=== PATIENT | female | born 1955 | race Caucasian/White ===

== ENCOUNTER 2025-06-27 01:28 | Emergency (ER) | payer MEDICARE, SELFPAY ==
--- OUTSIDE RECORDS SUMMARY | 2025-05-19 13:00 | XMS_ITS | Encounter Summary ---
Author Organization [facility] Address [address], [place] [address] Care Team Providers Care Seafood Preparer Name Role Phone Unavailable Primary Care Provider Unavailabl e Reason for Visit * Procedure/Equipment (Routine) - Incomplete Specialty Diagnoses / Procedures Referred By Contac t Referred To Contact Diagnoses Abnormal finding on breast imaging Procedures MM US Bx Breast Lt Akilah Chamberlain APRN, RELOCATION SERVICES SPECIALIST [address] [place] [address] Phone: tel: fax: Referral ID Status Reason Start Date Expiration Date V isits Requested Visits Authorized [id number] Incomplete 04/13/2025 07/13/2026 1 1 Encounter Details Date Type Department Care Team (Latest Contact Info) Description 05/19/2025 1:00 PM CDT Ancillary Procedure [facility] Mammography at [facility] [place] [address] [place] [address]. 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 [address] [place], [place] [phone] Kunal Arevalo MD [address] [place] [address] documented as of this encounter Procedures Procedure Name Priority Date/Time Associated Diagnosis Comments MM US BX BREAST LT Routine 05/19/2025 1: 19 PM CDT Abnormal finding on breast imaging SURGICAL PATHOLOGY, BREAST Routine 05/19/2025 12:42 PM CDT Abnormal finding on breast imaging documented in this encounter Results * MM US Bx Breast Lt (05/19/2025 1:19 PM CDT) Anatomical Region Laterality Modality Breast Left Ultrasound Impressions 05/20/2025 11:26 AM CDT Left breast ultrasound-guided core biopsy at 11 o'clock position subareolar. 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 RECOMMENDATION: 1. Surgical consultation to discuss the left breast pathology of ADH and possible excision. If excision is not performed, re-evaluation in six months with ultrasound would be recommended. 2. Bilateral follow-up ultrasound in six months is recommended given additional similar findings in either breast. Signed by: Josue Marsh 05/20/2025 11:26 AM FDA Accredited Facility: Amy Gomez [facility] [id number] Narrative 05/20/2025 11:26 AM CDT EXAM: ULTRASOUND GUIDED BREAST BIOPSY HISTORY: Intraductal left breast mass. COMPARISON: 04/13/2025, 10/06/2024, 11/24/2023. FINDINGS: PROCEDURE: The risks and benefits of the procedure were explained to the patient and the patient signed a written consent form. The patient's ID and biopsy site were confirmed. The patient was positioned on the ultrasound table. Sterile technique was utilized. The left breast mass at 11 o'clock position subareolar was localized with ultrasound. A total of 10 ML of 1% lidocaine was used for local anesthesia. Under ultrasound guidance, a 14 gauge Achieve biopsy needle system was used to obtain four core specimens through the target from a lateral approach. A HydroMARK butterfly biopsy marker was placed. There were no immediate complications. The patient was transferred to a mammographic suite. Post Procedure Mammogram for Marker Placement: Post biopsy mammogram shows marker deployment at 11 o'clock position anteriorly. Procedure Note Josue Marsh MD - 05/20/2025 EXAM: ULTRASOUND GUIDED BREAST BIOPSY HISTORY: Intraductal left breast mass. COMPARISON: 04/13/2025, 10/06/2024, 11/24/2023. FINDINGS: PROCEDURE: The risks and benefits of the procedure were explained to thepatient and the patient signed a written consent form. The patient's IDand biopsy site were confirmed. The patient was positioned on theultrasound table. Sterile technique was utilized. The left breast mass at11 o'clock position subareolar was localized with ultrasound. A total of10 ML of 1% lidocaine was used for local anesthesia. Under ultrasoundguidance, a 14 gauge Achieve biopsy needle system was used to obtain fourcore specimens through the target from a lateral approach. A HydroMARKbutterfly biopsy marker was placed. There were no immediatecomplications. The patient was transferred to a mammographic suite. Post Procedure Mammogram for Marker Placement: Post biopsy mammogram shows marker deployment at 11 o'clock positionanteriorly. IMPRESSION Left breast ultrasound-guided core biopsy at 11 o'clock positionsubareolar. 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 RECOMMENDATION: 1. Surgical consultation to discuss the left breast pathology of ADH andpossible excision. If excision is not performed, re-evaluation in sixmonths with ultrasound would be recommended. 2. Bilateral follow-up ultrasound in six months is recommended givenadditional similar findings in either breast. Signed by: Josue Marsh 05/20/2025 11:26 AM FDA Accredited Facility: [facility] [id number] us Akilah Chamberlain APRN, RELOCATION SERVICES SPECIALIST RAD JUNE Fin al Result * Surgical Path, Breast (05/19/2025 12:42 PM CDT) Case Report Surgical Pathology Case: [id number] Authorizing Provider: Akilah Chamberlain APRN, Collected: 05/19/2025 1242 RELOCATION SERVICES SPECIALIST Ordering Location: [facility] Received: 05/19/2025 [address] Center Mammography at [facility] [address] Pathologist: Jessie Mao MD Specimen: Breast, left, 11:00 o'clock, Ultrasound 05/20/2025 10:25 AM CDT [facility] FINAL DIAGNOSIS A. 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 05/20/2025 10:25 AM CDT [facility] at 1025 CDT Clinical Information non-palpable 05/20/2025 10:25 AM CDT [facility] Microscopic Description Microscopic examination is performed. 05/20/2025 10:25 AM CDT [facility] Gross Description A: The specimen is received in formalin and labeled with the patient's name and Breast, left, 11:00 o'clock, Ultrasound. The specimen consists of a 1 x 1 x 0.8 cm aggregate of multiple entangled and fragmented mann-yellow cores of soft tissue. The specimen is inked red. The specimen was collected and placed in formalin at12:41 PM, 05/19/2025. The specimen is entirely submitted in 1 block. AW 05/20/2025 10:25 AM CDT [facility] Embedded Images 05/20/2025 10:25 AM CDT [facility] Tissue BREAST STRUCTURE / Unknown 05/19/2025 12:42 PM CDT 05/19/2025 2:37 PM CDT us Akilah Chamberlain APRN, RELOCATION SERVICES SPECIALIST LAB PATHOLOGY Fin al Result [facility] [email or web address] documented in this encounter Visit Diagnoses Diagnosis Abnormal finding on breast imaging- Primary Other (abnormal) findings on radiological examination of breast documented in this encounter Administered Medications Inactive Administered Medications - up to 3 most recent administrations Medication Order MAR Action Action Date Dose Rate Site lidocaine (XYLOCAINE) 1 % injection 10 mL 10 mL, Subcutaneous, ONCE, On Tu05/19/25 at 1345, For 1 dose Given 05/19/2025 1:19 PM CDT 10 mL Other documented in this encounter
--- OUTSIDE RECORDS SUMMARY | 2025-05-19 14:00 | XMS_ITS | Encounter Summary ---
Author Organization [facility] Address [address], [place] [address] Care Team Providers Care Semiconductor Wafer Inspector Name Role Phone Unavailable Primary Care Provider Unavailabl e Reason for Visit * Procedure/Equipment (Routine) - Incomplete Specialty Diagnoses / Procedures Referred By Contac t Referred To Contact Diagnoses Abnormal finding on breast imaging Procedures MM Post Mammogram Lt Akilah Chamberlain APRN, CLINICAL DATA MANAGER [address] [place] [address] Phone: tel: fax: Referral ID Status Reason Start Date Expiration Date V isits Requested Visits Authorized [id number] Incomplete 04/13/2025 07/13/2026 1 1 Encounter Details Date Type Department Care Team (Latest Contact Info) Description 05/19/2025 2:00 PM CDT Ancillary Procedure [facility] Mammography at [facility] [place] [address] [place] [address]. 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 file Not on file Not on fi le documented as of this encounter Plan of Treatment Upcoming Encounters Date Type Department Care Team (Late st Contact Info) Description 07/10/2025 8:40 AM CDT Appointment Specialty Center 3931 General Surgery [address] [facility] [address] [place] [address] Kunal Arevalo MD [address] [place] [address] documented as of this encounter Procedures Procedure Name Priority Date/Time Associated Diagnosis Comments MM POST MAMMOGRAM LT Routine 05/19/2025 1:32 PM CDT Abnormal finding on breast imaging documented in this encounter Results * MM Post Mammogram Lt (05/19/2025 1:32 PM CDT) Anatomical Region Laterality Modality Breast Left Mammography Narrative 05/19/2025 1:35 PM CDT MM POST MAMMOGRAM LT A Post Procedure mammogram was performed on 05/19/25 in a different room than the procedure to confirm marker deployment and position. See the breast procedure report of the same date for the marker type and position. Breast Density: There are scattered areas of fibroglandular density. Assessment: Post-Procedure Mammogram for Marker Placement The results of this examination will be communicated to the patient. [facility] [place] [address] us Akilah Chamberlain CENTRIFUGE SEPARATOR TENDER, CLINICAL DATA MANAGER RAD JUNE Fin al Result documented in this encounter Visit Diagnoses Diagnosis Abnormal finding on breast imaging Other (abnormal) findings on radiological examination of breast documented in this encounter
--- OUTSIDE RECORDS SUMMARY | 2025-06-02 14:40 | XMS_ITS | Encounter Summary ---
Author Organization [facility] Address [address] [place] [id number] Care Team Providers Care Pattern Mechanic Name Role Phone Unavailable Primary Care Provider Unavailabl e Reason for Referral * Procedure/Equipment (Routine) - Incomplete Specialty Diagnoses / Procedures Referred By Kelly vergara Referred To Contact Diagnoses Abnormal mammogram of left breast Atypical ductal hyperplasia of left breast Procedures MM US Breast Seed Loc Lt Kunal Arevalo MD [address] [place] [address] Phone: tel: fax: Referral ID Status Reason Start Date Expiration Date V isits Requested Visits Authorized [id number] Incomplete 06/02/2025 09/01/2026 1 1 * Procedure/Equipment (Routine) - Incomplete Specialty Diagnoses / Procedures Referred By Kelly vergara Referred To Contact Diagnoses Abnormal mammogram of left breast Atypical ductal hyperplasia of left breast Procedures Case Request OR - General/Vascular Surg: LEFT SEED LOCALIZED EXCISIONAL BREAST BIOPSY Kunal Arevalo MD [address] [place] [address] Phone: tel: fax: Referral ID Status Reason Start Date Expiration Date V isits Requested Visits Authorized [id number] Incomplete 06/02/2025 09/01/2026 1 1 Reason for Visit * Reason Comments CONSULT Encounter Details Date Type Department Care Team (Late st Contact Info) Description 06/02/2025 2:40 PM CDT Office Visit Specialty Center [address] General Surgery [address] [facility] [address] [place] [address] Kunal Arevalo MD [address] [place] [address] Abnormal mammogram of left breast (Primary Dx); Atypical ductal hyperplasia of left breast Social History Tobacco Use Types Packs/Day Years [...] Industry 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 Not on file Not on file Not on file 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 Advised patient to stop eating after midnight the evening before surgery, but is able to drink clear liquids (water and Gatorade) up until 4 hours prior to surgery per orders. Reviewed Amy Garcia surgery packet, seed pamphlet, and breast surgery post op instruction sheet. Answered all questions at this time. Patient will call with any further questions or concerns. Patient verbalized understanding. * Kunal Arevalo MD - 06/02/2025 2:40 PM CDT Images from the original note were not included. Shinto Breast Surgery Consult Note Date of Service: 06/02/2025 Patient Name: Мария Jay : 1955 CSN: [id number] Referring physician/PA/CUSTOM TAILOR APPRENTICE: No referring provider defined for this encounter. Breast mass information Breast, left, 11:00 o'clock, Ultrasound, needle core biopsy: Atypical ductal hyperplasia (ADH) with associated calcifications Usual type ductal hyperplasia, columnar cell change, pseudoangiomatous stromal hyperplasia (PASH), and fibroadenomatoid change Assessment: Мария Jay is a 69 y.o. female with Left breast ADH and PASH. Plan: Left breast ADH Plan for excisional breast biopsy, seed localized. Discussed risk of upgrade to DCIS is ~20% Operative plan Seed localized excisional breast biopsy I discussed the risks, benefits, and alternatives with the patient. The risks include but are not limited to: bleeding, infection, need for re-excision, upstage to DCIS or invasive cancer, and poor cosmesis. Benefits include excision of the mass. Alternatives include short term mammogram follow-up.All of the patient's questions were answered to the best of my ability. Follow up 2 weeks post-operatively Surveillance Pending final pathology I spent 45 minutes, of which more than 50% was spent in [id number] consultation with the patient and patient-directed care coordination. I reviewed 4 clinical imaging exams and 2 previous notes. HgB: Hemoglobin Date Value Ref Range Status 11/22/2012 13.4 11.8 - 15.5 g/dL Final Interval History: Мария Jay is a 69 y.o. female who presents to the surgical clinic with a complaint of left sided ADH. She recently underwent a diagnostic mammogram and was found to have a an area of concern that was biopsied. ECO - Fully active, able to carry on all pre-disease performance without restriction Medical history: Past Medical History: Diagnosis Date Bipolar I disorder, most recent episode (or current) unspecified ([facility]) 10/12/2006 Import from [employer] Migraine Without Aura 04/04/2003 Overweight ([facility]) 11/23/2014 Pain Low Back 04/04/2003 Varicella 11/17/2010 LW Onset: childhood ; Varicella Zoster Surgical history: Past Surgical History: Procedure Laterality Date TONSILLECTOMY Problem list: Patient Active Problem List Diagnosis Date Noted Atypical ductal hyperplasia of left breast 06/02/2025 Decreased hearing, bilateral 01/07/2025 Abnormal mammogram of left breast 10/14/2024 Overview Note: BIRADS 3; repeat US due in March 2025 Age-related osteoporosis without current pathological fracture ([facility]) 04/14/2024 Overview Note: Taking AlgaeCal Plus; started in February: started weight-training Low vitamin D level 04/14/2024 Overview Note: Started AlgaeCal Plus (03/2024) Now vit D wnl Fatty liver ([facility]) 11/14/2023 Mixed hyperlipidemia ([facility]) 12/28/2021 Overview Note: Chronic. Stable. Recommended statin; pt declines Discussed lifestyle modifications to improve cholesterol levels. The 10-year ASCVD risk score (Ara NICHOLE, et al., 2019) is: 8% Values used to calculate the score: Age: 69 years Sex: Female Is Non- : No Diabetic: No Tobacco smoker: No Systolic Blood Pressure: 116 mmHg Is BP treated: No HDL Cholesterol: 34 mg/dL Total Cholesterol: 206 mg/dL Prediabetes 12/28/2021 Overview Note: Chronic. Stable. The hemoglobin A1c is in the pre-diabetic range. Limiting simple carbohydrates and sugars in the diet will help prevent progression to diabetes. Moderate physical activity 150 minutes per week is also recommended. History of shingles 12/26/2021 Irritable bowel syndrome with constipation 12/26/2021 Overview Note: Encouraged increased fiber and fluid intake. Titrate miralax to comfort. Re- referred to colonoscopy. If LLQ recurs/worsens, will encouraged pt again toward CT scan of abdomen. Environmental allergies 12/26/2021 Overview Note: Severe allergies to air fresheners and fabric softeners. Overweight ([facility]) 11/23/2014 Migraine 04/04/2003 Overview Note: Migraine Without Aura Medications: Current Outpatient Medications Medication Sig Dispense Refill ALFALFA OIL OR Take by mouth. Reported on 01/10/2017 CALCIUM OR Take by mouth. Cholecalciferol 400 UNITS Take by mouth. diphenhydrAMINE (BENADRYL) 12.5 MG/5ML elixir Take 5 mL (12.5 mg) by mouth. EPINEPHrine (EPIPEN) 0.3 MG/0.3ML injection Inject 0.3 mL intramuscularly as needed. May repeat. 2 Each 11 loratadine (CLARITIN) 10 MG tablet Take 1 Tablet (10 mg) by mouth daily. Multiple Vitamins-Minerals (MULTIVITAMIN OR) Take 1 tablet by mouth daily (every 24 hours). 100 13 Probiotic Product (PROBIOTIC OR) No current facility-administered medications for this visit. Allergies: Allergies Allergen Reactions Latex Rash Amoxicillin Hives Blue Dye #2 ([facility] [place]) Hives Clindamycin Anaphylaxis Other Anaphylaxis Air freshener, anaphylactic reaction, uses epi pen Azithromycin Rash Paroxetine Other, see comments diarrhea Caffeine Headache and Tachycardia migraine Family history: Family History Problem Relation Name Age of Onset Diabetes Mother Cataract Mother Dementia Father 79 Pacemaker Father Diabetes Maternal Uncle Diabetes Maternal Grandmother Amblyopia/Strabismus Negative Family History Blindness Negative Family History Cancer Negative Family History Glaucoma Negative Family History Hypertension Negative Family History Macular Degeneration Negative Family History Retinal Detachment Negative Family History Stroke Negative Family History Thyroid Disorder Negative Family History Cancer, Colon Negative Family History Cancer, Breast Negative Family History Hyperlipidemia Negative Family History Cancer, Ovary Negative Family History Social history: Social History Socioeconomic History Marital status: Number of children: 2 Occupational History 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 2 grown sons - both live in [place]. 1 grand-daughter - (11/2015). 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 10/12/2017. 04/13/2025 update: Move to [place] 2020 to be near her children and grandchildren. Her and her sold their home here in [place] and they previously rented every summer we may came back to [place] but they just bought a camphor that is permanently parked that they can close up when they go back to [place] in the fall. They come back to [place] because both of their families of origin live in [place]. Social Drivers of Health Tobacco Use: Low Risk (06/02/2025) Patient History Smoking Tobacco Use: Never Smokeless Tobacco Use: Never Depression: Not at risk (01/07/2025) Received from [facility]) PHQ-2 PHQ-2 Total Score: 0 Review of Systems Complete Review of Systems is negative, unless noted in HPI Physical Exam: Visit Vitals: Ht 5' 6 (167.6 cm) Wt 171 lb (70293 g) LMP 11/23/2007 BMI 27.60 kg/m?? Intake/Output None Physical Exam: Physical Exam Constitutional: Appearance: Normal appearance. Chest: Comments: The bilateral breasts and axilla were examined in the upright position. On the left breast there were changes consistent with her recent biopsy but no palpable masses. There was not palpable axillary lymphadenopathy either. Neurological: Mental Status: She is alert. Imaging: ntains abnormal data MM Mammogram Diag Rt W 3D Mike Order: [id number] Status: Final result Next appt: 06/05/2025 at 03:30 PM in Family Medicine (Homa Mariano PA-C) Dx: Mass of right breast, unspecified paul... Linked study orders: MM US Breast Bilat (Order: [id number]) Test Result Released: Yes (seen) Messages: Not Seen 4 Result Notes 1 Patient Communication View Follow-Up Encounter Assessment Overall 4 - Suspicious Breast Density Overall Breast Composition b - Scattered fibroglandular density Details Reading Physician Reading Date Result Priority Ariel Shea MD [phone] 04/13/2025 Routine Physician Responsible for MQSA Outcome Reason Ariel Shea MD Signed Narrative & Impression HISTORY: Palpable right breast lump. Left breast ultrasound follow-up is recommended to reassess possible complex cystic masses identified on previous ultrasound. COMPARISON: Left breast ultrasound and bilateral diagnostic tomosynthesis from outside institution 10/06/2024, screening mammogram from outside institution 11/24/2023 FINDINGS: DIAGNOSTIC MAMMOGRAM: Right breast tomosynthesis and C view. There are scattered areas of fibroglandular density. There is no suspicious mammographic finding or significant change from prior. The breast parenchyma has a nodular pattern that is unchanged. TARGETED US: Ultrasound of the right breast 7:00 to 12:00 positions encompassing the region of the palpable lump at the 9 o'clock position 3 cm from the nipple does not confirm a suspicious finding. There are similar-appearing complex cystic masses in both breasts with nodular solid appearing components measuring up to 0.7 x 0.4 x 0.7 cm in the 11:00 subareolar position of the left breast. This appearance is nonspecific, however these masses could represent multiple peripheral papillomas. No lymphadenopathy in either axilla IMPRESSION/RECOMMENDATION: ACR BI-RADS CATEGORY 4: Suspicious. Recommend ultrasound-guided biopsy of the lesion in the 11:00 subareolar left breast. Other similar-appearing masses in both breasts are likely of the same pathology. If this mass represents a biopsy-proven papilloma, breast MRI could be considered for further evaluation Given the lack of imaging findings to explain the patient's right breast lump, further management would need to be based on clinical grounds. If the lump develops, further clinical follow-up with repeat imaging could be recommended at that time. The results of this examination and recommended follow up were discussed with the patient. The [facility] will attempt to schedule recommended follow up with the patient. FDA Accredited Facility: [facility] [id number] Exam Ended: 04/13/25 13:06 Last Resulted: 04/13/25 14:31 tains abnormal data MM US Breast Bilat Order: [id number] Status: Final result Next appt: 06/05/2025 at 03:30 PM in Family Medicine (Homa Mariano PA-C) Dx: Mass of right breast, unspecified paul... Linked study orders: MM Mammogram Diag Rt W 3D Mike (Order: [id number]) Test Result Released: Yes (seen) Messages: Not Seen 4 Result Notes 1 Patient Communication Assessment Overall 4 - Suspicious Breast Density Overall Breast Composition b - Scattered fibroglandular density Details Reading Physician Reading Date Result Priority Ariel Shea MD [phone] 04/13/2025 Routine Physician Responsible for MQSA Outcome Reason Ariel Shea MD Signed Narrative & Impression HISTORY: Palpable right breast lump. Left breast ultrasound follow-up is recommended to reassess possible complex cystic masses identified on previous ultrasound. COMPARISON: Left breast ultrasound and bilateral diagnostic tomosynthesis from outside institution 10/06/2024, screening mammogram from outside institution 11/24/2023 FINDINGS: DIAGNOSTIC MAMMOGRAM: Right breast tomosynthesis and C view. There are scattered areas of fibroglandular density. There is no suspicious mammographic finding or significant change from prior. The breast parenchyma has a nodular pattern that is unchanged. TARGETED US: Ultrasound of the right breast 7:00 to 12:00 positions encompassing the region of the palpable lump at the 9 o'clock position 3 cm from the nipple does not confirm a suspicious finding. There are similar-appearing complex cystic masses in both breasts with nodular solid appearing components measuring up to 0.7 x 0.4 x 0.7 cm in the 11:00 subareolar position of the left breast. This appearance is nonspecific, however these masses could represent multiple peripheral papillomas. No lymphadenopathy in either axilla IMPRESSION/RECOMMENDATION: ACR BI-RADS CATEGORY 4: Suspicious. Recommend ultrasound-guided biopsy of the lesion in the 11:00 subareolar left breast. Other similar-appearing masses in both breasts are likely of the same pathology. If this mass represents a biopsy-proven papilloma, breast MRI could be considered for further evaluation Given the lack of imaging findings to explain the patient's right breast lump, further management would need to be based on clinical grounds. If the lump develops, further clinical follow-up with repeat imaging could be recommended at that time. The results of this examination and recommended follow up were discussed with the patient. The [facility] will attempt to schedule recommended follow up with the patient. [facility] Accredited Facility: [facility] [id number] Exam Ended: 04/13/25 13:57 Last Resulted: 04/13/25 14:31 MM US Bx Breast Lt Order: [id number] Status: Final result Next appt: 06/05/2025 at 03:30 PM in Family Medicine (Homa Mariano PA-C) Dx: Abnormal finding on breast imaging Test Result Released: Yes (seen) 1 Result Note View Follow-Up Encounter Assessment Overall Left Pathology High Risk Pathology High Risk Details Reading Physician Reading Date Result Priority Josue Marsh MD [phone] 05/19/2025 Routine Physician Responsible for MQSA Outcome Reason Josue Marsh MD Signed Narrative & Impression EXAM: ULTRASOUND GUIDED BREAST BIOPSY HISTORY: Intraductal [...] marker deployment at 11 o'clock position anteriorly. IMPRESSION Left breast ultrasound-guided core biopsy at [...] months is recommended given additional similar findings ineither breast. Signed by: Josue Marsh 05/20/2025 11:26 AM FDA Accredited Facility: [facility] [id number] Exam Ended: 05/19/25 13:19 Last Resulted: 05/20/25 11:26 MM Post Mammogram Lt Order: [id number] Status: Final result Next appt: 06/05/2025 at 03:30 PM in Family Medicine (Homa Mariano PA-C) Dx: Abnormal finding on breast imaging Test Result Released: Yes (seen) Assessment Overall Left Post-Procedure Mammogram for Marker Placement Post-Procedure Mammogram for Marker Placement Breast Density Overall Breast Composition b - Scattered fibroglandular density Details Reading Physician Reading Date Result Priority Josue Marsh MD [phone] 05/19/2025 Routine Physician Responsible for MQSA Outcome Reason Josue Marsh MD Signed Narrative & Impression MM POST MAMMOGRAM LT A Post Procedure [...] examination will be communicated to the patient. FDA Accredited Facility: [place] [id number] Exam Ended: 05/19/25 13:32 Last Resulted: 05/19/25 13:35 Labs: White Blood Cell Count Date Value Ref Range Status 11/22/2012 7.4 3.8 - 11.0 k/cmm Final Hemoglobin Date Value Ref Range Status 11/22/2012 13.4 11.8 - 15.5 g/dL Final Platelet Count Date Value Ref Range Status 11/22/2012 225 140 - 450 k/cmm Final Alk Phos Date Value Ref Range Status 10/11/2005 68 50 - 136 U/L Final Aspartate Aminotransferase Date Value Ref Range Status 10/11/2005 15 0 - 45 U/L Final Alanine Aminotransferase Date Value Ref Range Status 10/11/2005 29 0 - 65 U/L Final Bilirubin Total Date Value Ref Range Status 10/11/2005 0.6 0.2 - 1.2 mg/dL Final Blood Urea Nitrogen Date Value Ref Range Status 03/13/2000 17 5 - 26 mg/dL Final Potassium Date Value Ref Range Status 01/10/2010 4.4 3.5 - 5.2 mEq/L Final Lab Glucose Date Value Ref Range Status 09/26/2017 94 70 - 100 mg/dL Final Comment: The stated glucose range is for the fasting state. Non-fasting glucose range is 70-180 mg/dL Creatinine Serum Date Value Ref Range Status 03/13/2000 0.9 0.5 - 1.5 mg/dL Final documented in this encounter Plan of Treatment Upcoming Encounters Date Type Department Care Team (Late st Contact Info) Description 07/10/2025 8:40 AM CDT Appointment Specialty Center [address] General Surgery [address] [facility] [address] [place], [place] [id number] Kunal Arevalo MD [address] [place] [address] Pending Results Name Type Priority Associated Diagnoses Date /Time MM US Breast Seed Loc Lt Imaging New Routine Abnormal mammogram of left breast Atypical ductal hyperplasia of left breast 06/24/2025 3:21 PM CDT documented as of this encounter Visit Diagnoses Diagnosis Abnormal mammogram of left breast- Primary Atypical ductal hyperplasia of left breast documented in this encounter
--- OUTSIDE RECORDS SUMMARY | 2025-06-05 15:30 | XMS_ITS | Encounter Summary ---
Author Organization [facility] Address [address] [place] [address] Care Team Providers Care Plasterer Foreman Name Role Phone Clinician, Not Found MD Primary Care Provider Un available Reason for Visit * Reason Comments PRE-OP EXAM DOS: 06/25/25 BREAST BIOPSY WITH SEED LOCALIZATION with QUINN AREVALO at [facility] Anesthesia: MAC/Local Encounter Details Date Type Department Care Team (Late st Contact Info) Description 06/05/2025 3:30 PM CDT [facility] [address] [place], [place] [address] Homa Mariano PA-C [address] [place], [place] [address] Preop examination (Primary Dx); Abnormal mammogram of left breast; Atypical ductal hyperplasia of left breast Social History Tobacco Use Types Packs/Day Years Used Date Smoking Tobacco: Never Smokeless Tobacco: Never Alcohol Use Standard Drinks/Week Comments No 0 (1 standard drink = 0.6 oz pur e alcohol) PHQ-2 Answer Date Recorded PHQ-2 Score 0 06/05/2025 Comments No Sex and Gender Information Value Date Recorded Sex Assigned at Not on file Legal Sex Female 5:06 AM CDT Gender Identity Not on file Sexual Orientation Not on file 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 Not on file Not on file 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 on file 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 Not on file Not on file Not on fi le documented as of this encounter Last Filed Vital Signs Vital Sign Reading Time Taken Comments Blood Pressure 124/81 06/05/2025 3:11 PM CDT Pulse 75 06/05/2025 3:11 PM CDT Temperature - - Respiratory Rate - - Oxygen Saturation - - Inhaled Oxygen Concentration - - Weight 77.6 kg (171 lb) 06/05/2025 3:11 PM CDT Height 168.9 cm (5' 6.5) 06/05/2025 3:11 PM CDT Body Mass Index 27.19 06/05/2025 3:11 PM CDT documented in this encounter Patient Instructions * Patient Instructions* Homa Mariano PA-C - 06/05/2025 3:30 PM CDT Follow your individualized medication recommendations as described above. In addition, please stop all qcht-nmi-bnqbntn medications including aspirin, ibuprofen (Advil, Motrin), naproxen (Aleve, Naprosyn), herbal remedies and supplements one week prior to procedure unless directed otherwise by your care team. You may continue to take acetaminophen (Tylenol) up to the dayof your procedure. Continue all other medications as currently taking. Let your care team know if you have questions. On the day of your procedure, do not wear any hair product including hair sprays and gels and avoidusing body sprays and deodorants/antiperspirants. Bring with you to the site of the procedure: Any oral appliances or CPAP equipment related to sleep apnea Any other health-related equipment or devices you use daily documented in this encounter OR Notes * H&P - Homa Mariano PA-C - 06/05/2025 3:30 PM CDT Pre-Operative Assessment 06/05/2025 Pre-Op Assessment Procedure Details Procedure BREAST BIOPSY WITH SEED LOCALIZATION Surgeon QUINN AREVALO Location (Internal) OR Procedure Date 06/25/2025 Anesthesia Type MAC/Local Subjective Мария is a 69 y.o. old female here for pre-operative evaluation for procedure noted above. No concerns. Healthy today. Patient Active Problem List Diagnosis Date Noted Atypical ductal hyperplasia of left breast 06/02/2025 Decreased hearing, bilateral 01/07/2025 Abnormal mammogram of left breast 10/14/2024 Overview Note: BIRADS 3; repeat US due in March 2025 Age-related osteoporosis without current pathological fracture ([facility]) 04/14/2024 Overview Note: Taking AlgaeCal Plus; started in February: started weight-training Low vitamin D level 04/14/2024 Overview Note: Started AlgaeCal Plus (03/2024) Now vit D wnl Fatty liver ([facility]) 11/14/2023 Mixed hyperlipidemia ([facility]) 12/28/2021 Overview Note: Chronic. Stable. Recommended [...] to air fresheners and fabric softeners. Overweight ([facility]) 11/23/2014 Past Medical History: Diagnosis Date Bipolar I disorder, most recent episode (or current) unspecified ([facility]) 10/12/2006 Import from [employer] Migraine Without Aura 04/04/2003 Overweight ([facility]) 11/23/2014 Pain Low Back 04/04/2003 Varicella 11/17/2010 LW Onset: childhood ; Varicella Zoster Past Surgical History: Procedure Laterality Date TONSILLECTOMY WISDOM TEETH EXTRACTION Current Outpatient Medications Medication Instructions ALFALFA OIL OR Take by mouth. Reported on 01/10/2017 CALCIUM OR Take by mouth. Cholecalciferol 400 UNITS Take by mouth. diphenhydrAMINE (BENADRYL) 12.5 MG/5ML elixir 5 mL EPINEPHrine (EPIPEN) 0.3 mg, Intramuscular, PRN, May repeat. loratadine (CLARITIN) 10 mg, DAILY Multiple Vitamins-Minerals (MULTIVITAMIN OR) 1 Tablet, DAILY (NS) Probiotic Product (PROBIOTIC OR) No dose, route, or frequency recorded. 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 Family History Problem Relation Name Age of [...] Family History Cancer, Ovary Negative Family History Review of Systems: 06/05/2025 ET Amb PreOp Assessment Sx Have you had a heart attack in the last 30 days? No Have you experienced chest tightening or chest pressure with activity? No Do you wake at night with difficulty breathing? No Do you have swelling in your feet or ankles? No Do you get short of breath if lying flat at night? No Do you hear wheezing or whistling when you breathe? No Have you had a cough, runny nose, or cold symptoms in the last 2 weeks? No Have you tested positive for Covid in the last 6 months? Yes, 05/02/2025, patient is recovered. Do you have a long-standing cough? No Do you snore or are you sleepy during the day? No Do you have any symptoms due to a recent concussion? No Do you or close relatives have bleeding or clotting problems? No Have you taken Aspirin, Ibuprofen (Advil) or Naproxen (Aleve) in the last 7 days? No Do you or close relatives have a history of a severe or life-threatening reaction to anesthesia? No Estimated Functional Capacity Can you climb one flight of stairs, or walk up a gradual uphill without stopping? yes, functional capacity is more than or equal to 4 METS Objective BP 124/81 (BP Location: Right Arm, BP Cuff Size: Large) Pulse 75 Ht 5' 6.5 (1.689 m) Wt 171 lb (77.6 kg) LMP 11/23/2007 BMI 27.19 kg/m?? Physical Exam: General Appearance: alert, well appearing, and in no apparent distress Eyes: lids normal, sclera clear, conjunctiva normal, EOMs intact, and pupils equal round and reactive to light ENT: oropharynx clear, mucus membranes moist, and no oral lesions Neck: no lymphadenopathy and no thyromegaly or nodules Heart: regular rate and rhythm, no murmurs, gallops or rubs, and normal S1 and S2 Lungs: clear to auscultation, no wheezes, rales or rhonchi, equal breath sounds throughout, and normal respiratory effort Abdomen: soft, nondistended, nontender, no palpable masses, and no organomegaly Extremities: no edema Skin: no rashes or worrisome lesions Neurologic: normal speech, no facial droop, and normal gait Data: Labs: Not indicated. ECG: Not indicated for this procedure. Assessment/Plan Patient is medically optimized for planned procedure(s). ICD-10-CM 1. Preop examination Z01.818 2. Abnormal mammogram of left breast R92.8 3. Atypical ductal hyperplasia of left breast N60.92 Special risks: None Medication recommendations: Patient Instructions Follow your individualized medication recommendations as described above. In addition, please stop all aoyk-sni-gufgcol medications including aspirin, ibuprofen (Advil, Motrin), naproxen (Aleve, Naprosyn), herbal remedies and supplements one week prior to procedure unless directed otherwise by your care team. You may continue to take acetaminophen (Tylenol) up to the dayof your procedure. Continue all other medications as currently taking. Let your care team know if you have questions. On the day of your procedure, do not wear any hair product including hair sprays and gels and avoidusing body sprays and deodorants/antiperspirants. Bring with you to the site of the procedure: Any oral appliances or CPAP equipment related to sleep apnea Any other health-related equipment or devices you use daily Electronically signed by: Homa Mariano PA-C 06/05/2025, 3:39 PM documented in this encounter Plan of Treatment Upcoming Encounters Date Type Department Care Team (Late st Contact Info) Description 07/10/2025 8:40 AM CDT Appointment Specialty Center [facility] General Surgery [address] [facility] [address] [place], [place] [address] Quinn Arevalo MD [address] [place], [place] [id number] documented as of this encounter Visit Diagnoses Diagnosis Preop examination- Primary Preoperative examination, unspecified Abnormal mammogram of left breast Atypical ductal hyperplasia of left breast documented in this encounter Care Teams Plasterer Foreman Relationship Specialty Start Date End Date Clinician, Not Found, [place] [address] PCP - General 06/05/25 5 documented as of this encounter
--- OUTSIDE RECORDS SUMMARY | 2025-06-24 15:00 | XMS_ITS | Encounter Summary ---
Author Organization [facility] Address [address] [address] Care Team Providers Care Abalone Processor Name Role Phone Clinician, Not Found MD Primary Care Provider Un available Reason for Visit * Procedure/Equipment (Routine) - Incomplete Specialty Diagnoses / Procedures Referred By Kelly t Referred To Contact Diagnoses Abnormal mammogram of left breast Atypical ductal hyperplasia of left breast Procedures MM US Breast Seed Loc Lt Kunal Arevalo MD [address] [place] [address] Phone: tel: fax: Referral ID Status Reason Start Date Expiration Date V isits Requested Visits Authorized [id number] Incomplete 06/02/2025 09/01/2026 1 1 Encounter Details Date Type Department Care Team (Late st Contact Info) Description 06/24/2025 3:00 PM CDT Ancillary Procedure [facility] Mammography at [facility] and [facility] [place] [address] [address] [facility] 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 on file Not on file Not on fi le documented as of this encounter Plan of Treatment Upcoming Encounters Date Type Department Care Team (Late st Contact Info) Description 07/10/2025 8:40 AM CDT Appointment Specialty Center 39[address] General Surgery [address] [facility] [address] [place], [place] [address] Kunal Arevalo MD [address] [place] [address] Pending Results Name Type Priority Associated Diagnoses Date /Time MM US Breast Seed Loc Lt Imaging New Routine Abnormal mammogram of left breast Atypical ductal hyperplasia of left breast 06/24/2025 3:21 PM CDT documented as of this encounter Procedures Procedure Name Priority Date/Time Associated Diagnosis Comments MM US BREAST SEED LOC LT Routine 06/24/2025 3:21 PM CDT Abnormal mammogram of left breast Atypical ductal hyperplasia of left breast Procedure Note - Jose Nash MD - 06/24/2025 3:21 PM CDTThis note is in progress. EXAM: MM US BREAST SEED LOC LT HISTORY: Atypical ductal hyperplasia in the left breast at the 11:00 position.Additional similar-appearing findings were noted in both breasts. COMPARISON: 05/19/2025, 04/13/2025, 10/06/2024 FINDINGS: The patient's identifying numbers and side of lesion were confirmed withthe patient. The procedure, its benefits, alternatives, possible need forlocalization wire placement, and risks including but not limited toinfection and bleeding were discussed. The patient agrees to undergo theprocedure and signed the consent form. The patient's left breast was positioned and images of the biopsy markerlocated at 11:00 subareolar position, were obtained. The skin was cleansed with antiseptic solution, a 10 mL 9:1 mix of 1%lidocaine / 8.4% sodium bicarbonate was injected into skin and surroundingtissues. The Purple SmartClip seed delivery needle tip was placed at thetarget under direct ultrasound visualization. Under direct ultrasoundobservation, the seed is deployed and the needle manipulated to free theseed; the needle is then withdrawn. Ultrasound confirms seed presence in the breast and the location and seedpresence is marked on the skin. Post-procedure mammogram shows the seed inclose proximity to the biopsy marker. There are scattered areas offibroglandular density A dressing is applied. The patient experienced no complications during the procedure. Images anddocuments were sent to the operating room with the patient. IMPRESSION Ultrasound guided PURPLE SmartClip seed placement at the 11:00 subareolarposition. PATHOLOGY: [facility] Accredited Facility: Amy Garcia [facility] [address] [address] documented in this encounter Visit Diagnoses Diagnosis Abnormal mammogram of left breast Atypical ductal hyperplasia of left breast documented in this encounter Administered Medications Inactive Administered Medications - up to 3 most recent administrations Medication Order MAR Action Action Date Dose Rate Site lidocaine (XYLOCAINE) 1 % injection 10 mL 10 mL, Subcutaneous, ONCE, On Sun06/24/25 at 1545, For 1 dose Given 06/24/2025 3:21 PM CDT 10 mL Other documented in this encounter Care Teams Abalone Processor Relationship Specialty Start Date End Date Clinician, Not Found, [place] [address] PCP - General 06/05/25 5 documented as of this encounter
--- OUTSIDE RECORDS SUMMARY | 2025-06-24 15:30 | XMS_ITS | Encounter Summary ---
Author Organization [facility] Address [address], [place] [address] Care Team Providers Care Salt Refiner Name Role Phone Clinician, Not Found MD Primary Care Provider Un available Reason for Visit * Procedure/Equipment (Routine) - Incomplete Specialty Diagnoses / Procedures Referred By Kelly t Referred To Contact Diagnoses Abnormal mammogram of left breast Atypical ductal hyperplasia of left breast Procedures MM Post Mammogram Lt Kunal Arevalo MD [address] [place] [address] Phone: tel: fax: Referral ID Status Reason Start Date Expiration Date V isits Requested Visits Authorized [id number] Incomplete 06/02/2025 09/01/2026 1 1 Encounter Details Date Type Department Care Team (Late st Contact Info) Description 06/24/2025 3:30 PM CDT Ancillary Procedure [facility] Mammography at [facility] and [facility] [place] [address] [address] [facility] [facility] 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 on file Not on file Not on fi le documented as of this encounter Plan of Treatment Upcoming Encounters Date Type Department Care Team (Late st Contact Info) Description 07/10/2025 8:40 AM CDT Appointment Specialty Center 39[address] General Surgery [address] [facility] [address] [place] [address] Kunal Arevalo MD [address] [place] [address] documented as of this encounter Procedures Procedure Name Priority Date/Time Associated Diagnosis Comments MM POST MAMMOGRAM LT Routine 06/24/2025 3:31 PM CDT Abnormal mammogram of left breast Atypical ductal hyperplasia of left breast documented in this encounter Results * MM Post Mammogram Lt (06/24/2025 3:31 PM CDT) Anatomical Region Laterality Modality Breast Left Mammography Narrative 06/24/2025 3:33 PM CDT MM POST MAMMOGRAM LT A Post Procedure mammogram was performed on 06/24/25 in a different room than the procedure to confirm marker deployment and position. See the breast procedure report of the same date for the marker type and position. Breast Density: There are scattered areas of fibroglandular density. Assessment: Post-Procedure Mammogram for Marker Placement The results of this examination will be communicated to the patient. [facility] Accredited Facility: [place] Radha Gomez [facility] [place] [address] Kunal Arevalo MD [facility] Final Result documented in this encounter Visit Diagnoses Diagnosis Abnormal mammogram of left breast Atypical ductal hyperplasia of left breast documented in this encounter Care Teams Salt Refiner Relationship Specialty Start Date End Date Clinician, Not Found, [place] [address] PCP - General 06/05/25 5 documented as of this encounter
--- OUTSIDE RECORDS SUMMARY | 2025-06-25 05:54 | XMS_ITS | Encounter Summary ---
[facility] [employer] Address [address], [place] [address] Care Team Providers Care Technical Writer Name Role Phone Homa Mariano PA-C Primary Care Provid er Reason for Visit * Auth/Cert (Routine) Specialty Diagnoses / Procedures Referred By Kelly vergara Referred To Contact Diagnoses Abnormal mammogram of left breast Atypical ductal hyperplasia of left breast Procedures SEED LOCALIZED EXCISIONAL LEFT BREAST BIOPSY Referral ID Status Reason Start Date Expiration Date Visits Re quested Visits Authorized [id number] 1 1 Encounter Details Date Type Department Care Team (Late st Contact Info) Description 06/25/2025 5:54 AM CDT - 06/25/2025 10:07 AM CDT Hospital Encounter [facility] [address] [facility]. 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 Not on file Not on file Not on fi le documented as of this encounter Last Filed Vital Signs Vital Sign Reading Time Taken Comments Blood Pressure 114/61 06/25/2025 9:30 AM CDT Pulse 71 06/25/2025 9:30 AM CDT Temperature 36.5 C (97.7 F) 06/25/2025 9:02 AM CDT Respiratory Rate 16 06/25/2025 9:15 AM CDT Oxygen Saturation 97% 06/25/2025 9:30 AM CDT Inhaled Oxygen Concentration - - Weight - - Height - - Body Mass Index - - documented in this encounter Discharge Instructions * Medications* Kunal Arevalo MD - 06/25/2025 8:57 AM CDT PAIN CONTROL Many patients do not need to take narcotics after surgery. We recommend the following OTC medication regimen: Every 3 hours - take 2 tablets of 325 mg Tylenol Regular Strength (acetaminophen) OR 2 tablets of 200 mg Motrin/Advil (ibuprofen) For Example: - 6am - 2 tablets of Tylenol - 9am - 2 tablets of Motrin - Noon - 2 tablets of Tylenol - 3pm - 2 tablets of Motrin - 6pm - 2 tablets of Tylenol Narcotic medications Tramadol 50mg tablets If you have pain despite the tylenol and ibuprofen, you have also been prescribed a narcotic medication. It should be taken every six hours as needed for severe pain. Do not drive while taking narcotic medications & please use a stool softener. Contact For any questions or concerns after surgery please reach out to our clinic nurse Britt @ [phone] If you have any other questions for our clinic, here the department numbers. Appointments: [phone] * Discharge Instr - Wound Care* Kunal Arevalo MD - 06/25/2025 8:57 AM CDT Your wounds were closed with Dermabond. Dermabond is a ???skin glue?? (cyanoacrylate adhesive) used to protect small incisions. The glue usually sloughs off in 7-14 days. These instructions will help you take care of your wound. 1. After the first 24 hours, the wound can get wet for short periods of time (i.e. in the shower). If you get the wound wet, pat it dry as soon as possible. Do not soak the wound until the glue has sloughed off. This means no swimming, saunas, or long baths. 2. Don???t pick at the glue. 3. Avoid any activities that put stress in the wound until your healthcare provider tells you it isOK to resume your normal activities. 4. No lotion, cream, vaseline, or tape over the wound as this will dissolve the adhesive. 5. Avoid prolonged sun exposure of the wound. 6. Watch for signs of infection and alert your surgeons office if you experience any of the following: ? Increasing redness, tenderness or warmth around the suture site ? Unusual swelling around the site ? Appearance of pus or any red streaks ? Fever documented in this encounter Medications at Time of Discharge ALFALFA OIL OR Take by mouth. Reported on 01/10/2017 12/30/2013 CALCIUM OR Take by mouth. 12/30/2013 Cholecalciferol 400 UNITS Take by mouth. 11/09/2014 diphenhydrAMINE (BENADRYL) 12.5 MG/5ML elixir Take 5 mL (12.5 mg) by mouth. 04/03/2019 EPINEPHrine (EPIPEN) 0.3 MG/0.3ML injection Inject 0.3 mL intramuscularly as needed. May repeat. 2 Each 11 07/01/2020 loratadine (CLARITIN) 10 MG tablet Take 1 Tablet (10 mg) by mouth daily. Multiple Vitamins-Minera ls (MULTIVITAMIN OR) Take 1 tablet by mouth daily (every 24 hours). 100 13 05/30/2004 Probiotic Product (PROBIOTIC OR) traMADol (ULTRAM) 50 MG tablet Take 1 Tablet (50 mg) by mouth every 6 hours as needed. 10 Tablet 06/25/2025 10:03 AM CDT 06/25/2025 documented as of this encounter Procedure Notes * Kunal Arevalo MD - 06/25/2025 8:56 AM CDT Images from the original note were not included. Operative note Date of Surgery 06/25/2025 Surgeon Surgeons and Role: * Kunal Arevalo MD - Primary [employer] Superintendent Sheyla Ohara DO [facility] surgery resident Preoperative Diagnosis Abnormal mammogram of left breast [R92.8] Atypical ductal hyperplasia of left breast [N60.92] Postoperative Diagnosis Abnormal mammogram of left breast [R92.8] Atypical ductal hyperplasia of left breast [N60.92] Procedure Left breast, seed localized, excisional breast biopsy () Anesthesia MAC/Local Findings Seed and biopsy clip within the specimen Complications None immediate Estimated blood loss (EBL) 5mL Specimens ID Type Source Tests Collected by Time Destination 1 : biopsy Tissue Breast, left SURGICAL PATHOLOGY Kunal Arevalo MD 06/25/2025 0815 Indication The patient is a 69 y.o.-year-old female with * Abnormal mammogram of left breast [R92.8] * Atypical ductal hyperplasia of left breast [N60.92] . Operative procedure details The patient was brought to the operating room placed in the supine position on the operating room table. She was then sedated and monitored by anesthesia without any difficulty. Following this her left breast was prepped and draped in the standard sterile fashion. A time-out was performed, and all were in agreement. I started by using the [employer] system to identify the localizer seed. It was located on the inner portion of the breast around the 3 o'clock position. I marked out my planned incision site along the areolar border. Local anesthetic was then injected. I then used a 15 blade scalpel to make a curvilinear incision along the areolar border. Dissection down to the subcutaneous tissue was then carried out with Bovie cautery. Once it was within 1 cm anterior to the localizer seed I then took a cone oftissue around the localizer seed approximate 1 cm working in an anterior to posterior fashion. OnceI had this lump on a pedicle. I then labeled the superior border with a short stitch in the lateral border with a long stitch. I then amputated the breast mass and labeled the deep, posterior margin with a double stitch. It was then sent for immediate mammography. The localizer seed and biopsy clipwere noted to be within the specimen. It was then sent for pathologic examination. The wound was then irrigated and hemostasis was obtained with Bovie cautery. I then closed down the space with 3-0 Vicryl in a simple interrupted fashion followed by 3-0 Vicryl in a deep dermal fashion and 4-0 Monocryl in a running subcuticular fashion. The wound was then cleansed and a sterile dressing and Dermabond was applied. The patient was then awoken and taken to PACU in stable condition. All lap and needle counts were correct for this case. Kunal Arevalo MD * Kunal Arevalo MD - 06/25/2025 8:56 AM CDT [facility] Brief Operative Progress Note Surgery Date: 06/25/2025 Surgeons and Role: * Kunal Arevalo MD - Primary Visitor: Student - Sheyla Ohara MS3 - Comments: anesthesia Pre-op Diagnosis: * Abnormal mammogram of left breast [R92.8] * Atypical ductal hyperplasia of left breast [N60.92] Post-op Diagnosis: Post-Op Diagnosis Codes: * Abnormal mammogram of left breast [R92.8] * Atypical ductal hyperplasia of left breast [N60.92] Procedures with associated lateralities: Procedure(s) (LRB): SEED LOCALIZED EXCISIONAL LEFT BREAST BIOPSY (Left) EBL: 5mL Specimens: ID Type Source Tests Collected by Time Destination 1 : biopsy Tissue Breast, left SURGICAL PATHOLOGY Kunal Arevalo MD 06/25/2025 0815 Complications / Findings: No immediate complications documented in this encounter Plan of Treatment Upcoming Encounters Date Type Department Care Team (Late st Contact Info) Description 07/10/2025 8:40 AM CDT Appointment [facility] General Surgery [address] [facility] [address] [place] [address] Kunal Arevalo MD [address] [place] [address] Pending Results Name Type Priority Associated Diagnoses Date /Time Surgical Path Lab Routine Abnormal mammogram of left breast Atypical ductal hyperplasia of left breast 06/25/2025 8:15 AM CDT Scheduled Orders Name Type Priority Associated Diagnoses Orde r Schedule Surgical Path Lab Routine Abnormal mammogram of left breast Atypical ductal hyperplasia of left breast Release Upon Ordering for 1 Occurrences starting 06/25/2025 until 06/29/2025, 1 completed documented as of this encounter Procedures Procedure Name Priority Date/Time Associated Diagnosis Comments BREAST BIOPSY WITH SEED LOCALIZATION 06/25/2025 7:42 AM CDT Abnormal mammogram of left breast Atypical ductal hyperplasia of left breast documented in this encounter Visit Diagnoses Diagnosis Abnormal mammogram of left breast Atypical ductal hyperplasia of left breast Abnormal mammogram of left breast Atypical ductal hyperplasia of left breast documented in this encounter Admitting Diagnoses Diagnosis Abnormal mammogram of left breast Atypical ductal hyperplasia of left breast documented in this encounter Administered Medications Inactive Administered Medications - up to 3 most recent administrations Medication Order MAR Action Action Date Dose Rate Site BUPivacaine-EPINEPHrine (SENSORCAINE) 0.25% -1:538809 injection ONCE PRN, Starting on Meli 06/25/25 at 0839, Until Meli 06/25/25 at 1207, Intra-op Given 06/25/2025 8:39 AM CDT 15 mL Wound Site diphenhydrAMINE (BENADRYL) injection 25 mg 25 mg, Intravenous, ONCE PRN, Hives, Other, pruritus, Starting on Meli 06/25/25 at 0622, Until Meli 06/25/25 at 1207, For 1 dose, Notify anesthesia if given., PACU/Recovery ePHEDrine 5 mg/mL injection 5-10 mg, Intravenous, [id number], Other, For systolic blood pressure less than 90 mmHg, Starting on Meli 06/25/25 at 0622, Until Meli 06/25/25 at 1207, Notify anesthesia if given. Max cumulative dose: 15 mg, PACU/Recovery fentaNYL (SUBLIMAZE) injection 25-50 mcg 25-50 mcg, Intravenous, [id number], Pain, Procedure, Starting on Meli 06/25/25 at 0622, Until Meli 06/25/25 at 1207, For 2 doses, As directed by anesthesiologist, Pre-op fentaNYL (SUBLIMAZE) injection 50 mcg 50 mcg, Intravenous, [id number], Pain, the immediate postop period when longer acting agent is desired, Starting on Meli 06/25/25 at 0622, Until Meli 06/25/25 at 1207, Use fentanyl as first line short acting agent for treatment of acute post operative pain. May use for breakthrough pain in conjunction with a longer acting agent (hydromorphone or morphine). Max cumulative dose: 250 mcg. Call anesthesia if additional or greater doses needed. For patients with a regional, spinal, or local anesthetic, may give for anticipated pain as the anesthetic wears off. Respiratory rate must be greater than 10 to administer medications., PACU/Recovery HYDROmorphone (DILAUDID) injection 0.25 mg 0.25 mg, Intravenous, Q10MIN PRN, Pain, The immediate postop period when longer acting agent is desired, Starting on Meli 06/25/25 at 0622, Until Meli 06/25/25 at 1207, Use hydromorphone if fentanyl is not adequately managing pain. May use fentanyl for breakthrough pain in conjunction with hydromorphone dosing. Maximum cumulative dose is 4 mg in PACU, call anesthesia if additional or greater doses needed. For patients with a regional, spinal, or local anesthetic, may give for anticipated pain as the anesthetic wears off., PACU/Recovery labetalol (NORMODYNE) injection 5 mg 5 mg, Intravenous, Q10MIN PRN, Other, High Blood Pressure, Starting on Meli 06/25/25 at 0622, Until Meli 06/25/25 at 1207, For 5 doses, Hold for HR less than 50. Give as directed by anesthesia, must call prior to administration., PACU/Recovery lactated ringers infusion 25 mL/hr, Intravenous, CONTINUOUS, Starting on Meli 06/25/25 at 0630, Administer on all preop surgery patients, ages 12 and older, unless specified differently in the Protocol for Preop Initiation of IV fluids Order Set., Pre-op Continued by Anesthesia 06/25/2025 7:55 AM CDT 25 mL/hr Started 06/25/2025 6:33 AM CDT 25 mL/hr 25 mL/hr lidocaine (XYLOCAINE) 1 % injection ONCE PRN, Starting on Meli 06/25/25 at 0840, Until Meli 06/25/25 at 1207, Intra-op Given 06/25/2025 8:40 AM CDT 15 mL Wound Site lidocaine PF (XYLOCAINE) 1 % injection - ADS Override Pull Starting on Meli 06/25/25 at 0545, For 1 dose, Katalina Romero: cabinet override lidocaine PF (XYLOCAINE) 1 % injection 0.1-0.3 mL 0.1-0.3 mL, Intradermal, ONCE, On Meli 06/25/25 at 0630, For 1 dose, Lidocaine to be used for IV starts unless patient refuses., Pre-op Given 06/25/2025 6:33 AM CDT 0.3 mL lidocaine PF (XYLOCAINE) 1 % injection 0.1-0.3 mL 0.1-0.3 mL, Intradermal, PRN, Other, for additional IV starts, Starting on Meli 06/25/25 at 0611, Pre-op midazolam (VERSED) injection 1-2 mg 1-2 mg, Intravenous, [id number], Sedation, Anxiety, Procedure, Starting on Meli 06/25/25 at 0622, Until Meli 06/25/25 at 1207, As directed by anesthesiologist MAX Dose 2mg, Pre-op naloxone (NARCAN) injection 0.04 mg 0.04 mg, Intravenous, Q2MIN PRN, Opioid Reversal, Non-Emergent Opioid Reversal (Respiratory Rate less than 8 breaths per minute or difficult to arouse), Starting on Meli 06/25/25 at 0900, Until Meli 06/25/25 at 1207, Dilution Instructions: Dilute 1 mL of 0.4 mg/mL naloxone vial into 9 mL of normal saline to make a final concentration of 0.04 mg/mL. Discard dose if not used within 1 hour. Use 1 mL of diluted 0.04 mg/mL strength slow IV push over 1 minute. Give first dose, notify practitioner, and continue to observe. Repeat for up to 5 doses per episode until patient is arousable and can take deep breaths. If no improvement in respiratory rate or remains difficult to arouse notify practitioner for additional orders. , PACU (only) naloxone (NARCAN) injection 0.4 mg 0.4 mg, Intravenous, Q2MIN PRN, Opioid Reversal, Emergent Opioid Reversal (Respiratory Rate less than 6 breaths per minute or unresponsive to physical stimulation), Starting on Meli 06/25/25 at 0900, Until Meli 06/25/25 at 1207, Give first dose, notify practitioner, and continue to observe. Repeat for up to 5 doses per episode until patient is responsive to physical stimulation and can take deep breaths. , PACU (only) octyl 2-cyanoacrylate (LIQUIBAND/DERMABOND) adhesive ONCE PRN, Starting on Meli 06/25/25 at 0840, Intra-op Given 06/25/2025 8:40 AM CDT 1 Each Wound Site ondansetron (ZOFRAN) injection 4 mg 4 mg, Intravenous, Q4H PRN, Nausea, Vomiting, Starting on Meli 06/25/25 at 0622, Until Meli 06/25/25 at 1207, If multiple medications are ordered for nausea or vomiting - administer in the following priority based on medications ordered, effectiveness and availability: ondansetron (ZOFRAN) > prochlorperazine (COMPAZINE) > diphenhydrAMINE (BENADRYL) > hydrOXYzine HCl (VISTARIL)> ePHEDrine > scopolamine (TRANSDERM-SCOP)., PACU/Recovery prochlorperazine (COMPAZINE) injection 5 mg 5 mg, Intravenous, Q15MIN PRN, Nausea, Vomiting, Starting on Meli 06/25/25 at 0622, Until Meli 06/25/25 at 1207, For 2 doses, 2nd dose may be given in 15-30 minutes if first dose not effective. Maximum of 2 doses only. If multiple medications are ordered for nausea or vomiting - administer in the following priority based on medications ordered, effectiveness and availability: ondansetron (ZOFRAN) > prochlorperazine (COMPAZINE) > diphenhydrAMINE (BENADRYL) > hydrOXYzine HCl (VISTARIL)> ePHEDrine > scopolamine (TRANSDERM-SCOP)., PACU/Recovery vancomycin (VANCOCIN) 1,250 mg in sodium chloride 0.9 % 250 mL IVPB 1,250 mg (rounded from 1,164 mg = 15 mg/kg 77.6 kg), Intravenous, Administer over 90 Minutes, ONCE, On Meli 06/25/25 at 0730, For 1 dose, Pre-opIndications:Surgical Prophylaxis Started 06/25/2025 7:39 AM CDT 1,250 mg 183.33 mL/hr documented in this encounter Active and Recently Administered Medications Times are shown in CDT. Scheduled Medication Order 06/23/2025 06/24/2025 06/25/2025 lidocaine PF (XYLOCAINE) 1 % injection 0.1-0.3 mL (COMPLETED)(Linked Group 1) 0.1-0.3 mL, Intradermal, ONCE, On Meli 06/25/25 at 0630, For 1 dose, Lidocaine to be used for IV starts unless patient refuses., Pre-op 0633 (Given - Provid er: Katalina Romero RN) vancomycin (VANCOCIN) 1,250 mg in sodium chloride 0.9 % 250 mL IVPB (COMPLETED) 1,250 mg (rounded from 1,164 mg = 15 mg/kg 77.6 kg), Intravenous, Administer over 90 Minutes, ONCE, On Meli 06/25/25 at 0730, For 1 dose, Pre-op 0739 (Started - Prov ider: Katalina Romero RN)0909 (Due: Infused - Provider: Katalina Romero RN) Continuous Medication Order 06/23/2025 06/24/2025 06/25/2025 lactated ringers infusion 25 mL/hr, Intravenous, CONTINUOUS, Starting on Meli 06/25/25 at 0630, Administer on all preop surgery patients, ages 12 and older, unless specified differently in the Protocol for Preop Initiation of IV fluids Order Set., Pre-op 0633 (Started - Prov ider: Katalina Romero RN)0755 (Continued by Anesthesia - Provider: Janell Jacinto APRN, MARIAM)0858 (Anesthesia Fluid - Provider: Janell Jacinto APRN, MARIAM)1207 (Due: Order Ending - Provider: Inpatient Template Epicmd - Comment: [Order ends at this time. Document the following action when infusion is complete: Infused]) PRN Medication Order 06/23/2025 06/24/2025 06/25/2025 BUPivacaine-EPINEPHrine (SENSORCAINE) 0.25% -1:[id number] injection ONCE PRN, Starting on Meli 06/25/25 at 0839, Until Meli 06/25/25 at 1207, Intra-op 0839 (Given - Provid er: Kunal Arevalo MD - Comment: bupivacaine 0.25%-epi 1:200,000 mixed with lidocaine 1%) diphenhydrAMINE (BENADRYL) injection 25 mg 25 mg, Intravenous, ONCE PRN, Hives, Other, pruritus, Starting on Meli 06/25/25 at 0622, Until Meli 06/25/25 at 1207, For 1 dose, Notify anesthesia if given., PACU/Recovery ePHEDrine 5 mg/mL injection 5-10 mg, Intravenous, [id number], Other, For systolic blood pressure less than 90 mmHg, Starting on Meli 06/25/25 at 0622, Until Meli 06/25/25 at 1207, Notify anesthesia if given. Max cumulative dose: 15 mg, PACU/Recovery fentaNYL (SUBLIMAZE) injection 25-50 mcg 25-50 mcg, Intravenous, [id number], Pain, Procedure, Starting on Meli 06/25/25 at 0622, Until Meli 06/25/25 at 1207, For 2 doses, As directed by anesthesiologist, Pre-op fentaNYL (SUBLIMAZE) injection 50 mcg 50 mcg, Intravenous, [id number], Pain, the immediate postop period when longer acting agent is desired, Starting on Meli 06/25/25 at 0622, Until Meli 06/25/25 at 1207, Use fentanyl as first line short acting agent for treatment of acute post operative pain. May use for breakthrough pain in conjunction with a longer acting agent (hydromorphone or morphine). Max cumulative dose: 250 mcg. Call anesthesia if additional or greater doses needed. For patients with a regional, spinal, or local anesthetic, may give for anticipated pain as the anesthetic wears off. Respiratory rate must be greater than 10 to administer medications., PACU/Recovery HYDROmorphone (DILAUDID) injection 0.25 mg 0.25 mg, Intravenous, Q10MIN PRN, Pain, The immediate postop period when longer acting agent is desired, Starting on Meli 06/25/25 at 0622, Until Meli 06/25/25 at 1207, Use hydromorphone if fentanyl is not adequately managing pain. May use fentanyl for breakthrough pain in conjunction with hydromorphone dosing. Maximum cumulative dose is 4 mg in PACU, call anesthesia if additional or greater doses needed. For patients with a regional, spinal, or local anesthetic, may give for anticipated pain as the anesthetic wears off., PACU/Recovery ketorolac (TORADOL) injection 15 mg 15 mg, Intravenous, Q6H PRN, Other, Mild Pain (pain score 1-4), Starting on Meli 06/25/25 at 0900, Until Meli 06/25/25 at 1207, For 3 days, Post-op labetalol (NORMODYNE) injection 5 mg 5 mg, Intravenous, Q10MIN PRN, Other, High Blood Pressure, Starting on Meli 06/25/25 at 0622, Until Meli 06/25/25 at 1207, For 5 doses, Hold for HR less than 50. Give as directed by anesthesia, must call prior to administration., PACU/Recovery lidocaine (XYLOCAINE) 1 % injection ONCE PRN, Starting on Meli 06/25/25 at 0840, Until Meli 06/25/25 at 1207, Intra-op 0840 (Given - Provid er: Kunal Arevalo MD - Comment: bupivacaine 0.25%-epi 1:200,000 mixed with lidocaine 1%) lidocaine PF (XYLOCAINE) 1 % injection 0.1-0.3 mL(Linked Group 1) 0.1-0.3 mL, Intradermal, PRN, Other, for additional IV starts, Starting on Meli 06/25/25 at 0611, Pre-op midazolam (VERSED) injection 1-2 mg 1-2 mg, Intravenous, [id number], Sedation, Anxiety, Procedure, Starting on Meli 06/25/25 at 0622, Until Meli 06/25/25 at 1207, As directed by anesthesiologist MAX Dose 2mg, Pre-op naloxone (NARCAN) injection 0.04 mg(Linked Group 2) 0.04 mg, Intravenous, Q2MIN PRN, Opioid Reversal, Non-Emergent Opioid Reversal (Respiratory Rate less than 8 breaths per minute or difficult to arouse), Starting on Meli 06/25/25 at 0900, Until Meli 06/25/25 at 1207, Dilution Instructions: Dilute 1 mL of 0.4 mg/mL naloxone vial into 9 mL of normal saline to make a final concentration of 0.04 mg/mL. Discard dose if not used within 1 hour. Use 1 mL of diluted 0.04 mg/mL strength slow IV push over 1 minute. Give first dose, notify practitioner, and continue to observe. Repeat for up to 5 doses per episode until patient is arousable and can take deep breaths. If no improvement in respiratory rate or remains difficult to arouse notify practitioner for additional orders. , PACU (only) naloxone (NARCAN) injection 0.4 mg(Linked Group 2) 0.4 mg, Intravenous, Q2MIN PRN, Opioid Reversal, Emergent Opioid Reversal (Respiratory Rate less than 6 breaths per minute or unresponsive to physical stimulation), Starting on Meli 06/25/25 at 0900, Until Meli 06/25/25 at 1207, Give first dose, notify practitioner, and continue to observe. Repeat for up to 5 doses per episode until patient is responsive to physical stimulation and can take deep breaths. , PACU (only) octyl 2-cyanoacrylate (LIQUIBAND/DERMABOND) adhesive ONCE PRN, Starting on Meli 06/25/25 at 0840, Intra-op 0840 (Given - Provid er: Kunal Arevalo MD) ondansetron (ZOFRAN) injection 4 mg 4 mg, Intravenous, Q4H PRN, Nausea, Vomiting, Starting on Meli 06/25/25 at 0622, Until Meli 06/25/25 at 1207, If multiple medications are ordered for nausea or vomiting - administer in the following priority based on medications ordered, effectiveness and availability: ondansetron (ZOFRAN) > prochlorperazine (COMPAZINE) > diphenhydrAMINE (BENADRYL) > hydrOXYzine HCl (VISTARIL)> ePHEDrine > scopolamine (TRANSDERM-SCOP)., PACU/Recovery oxyCODONE (ROXICODONE) immediate release tablet 5-10 mg 5-10 mg, Oral, Q4H PRN, Other, Moderate Pain (pain score 5-7), Starting on Meli 06/25/25 at 0900, Until Meli 06/25/25 at 1207, Post-op prochlorperazine (COMPAZINE) injection 5 mg 5 mg, Intravenous, Q15MIN PRN, Nausea, Vomiting, Starting on Meli 06/25/25 at 0622, Until Meli 06/25/25 at 1207, For 2 doses, 2nd dose may be given in 15-30 minutes if first dose not effective. Maximum of 2 doses only. If multiple medications are ordered for nausea or vomiting - administer in the following priority based on medications ordered, effectiveness and availability: ondansetron (ZOFRAN) > prochlorperazine (COMPAZINE) > diphenhydrAMINE (BENADRYL) > hydrOXYzine HCl (VISTARIL)> ePHEDrine > scopolamine (TRANSDERM-SCOP)., PACU/Recovery Linked Groups Order Group 1: lidocaine PF (XYLOCAINE) 1 % injection 0.1-0.3 mL (COMPLETED)Jump to med 0.1-0.3 mL, Intradermal, ONCE, On Meli 06/25/25 at 0630, For 1 dose, Lidocaine to be used for IV starts unless patient refuses., Pre-op And lidocaine PF (XYLOCAINE) 1 % injection 0.1-0.3 mLJump to med 0.1-0.3 mL, Intradermal, PRN, Other, for additional IV starts, Starting on Meli 06/25/25 at 0611, Pre-op Group 2: naloxone (NARCAN) injection 0.4 mgJump to med 0.4 mg, Intravenous, Q2MIN PRN, Opioid Reversal, Emergent Opioid Reversal (Respiratory Rate less than 6 breaths per minute or unresponsive to physical stimulation), Starting on Meli 06/25/25 at 0900, Until Meli 06/25/25 at 1207, Give first dose, notify practitioner, and continue to observe. Repeat for up to 5 doses per episode until patient is responsive to physical stimulation and can take deep breaths. , PACU (only) Or naloxone (NARCAN) injection 0.04 mgJump to med 0.04 mg, Intravenous, Q2MIN PRN, Opioid Reversal, Non-Emergent Opioid Reversal (Respiratory Rate less than 8 breaths per minute or difficult to arouse), Starting on Meli 06/25/25 at 0900, Until Meli 06/25/25 at 1207, Dilution Instructions: Dilute 1 mL of 0.4 mg/mL naloxone vial into 9 mL of normal saline to make a final concentration of 0.04 mg/mL. Discard dose if not used within 1 hour. Use 1 mL of diluted 0.04 mg/mL strength slow IV push over 1 minute. Give first dose, notify practitioner, and continue to observe. Repeat for up to 5 doses per episode until patient is arousable and can take deep breaths. If no improvement in respiratory rate or remains difficult to arouse notify practitioner for additional orders. , PACU (only) documented in this encounter Care Teams Technical Writer Relationship Specialty Start Date End Date Homa Mariano PA-C [address] [place] [address] PCP - General Physician Water [employer] Systems Superintendent 06/25/25 documented as of this encounter
--- OUTSIDE RECORDS SUMMARY | 2025-06-25 07:30 | XMS_ITS | Encounter Summary ---
[facility] Address [address] [address] Care Team Providers Care Solid Waste Division Supervisor Name Role Phone Homa Mariano PA-C Primary Care Provid er Reason for Visit * Auth/Cert (Routine) Specialty Diagnoses / Procedures Referred By Kelly vergara Referred To Contact Diagnoses Abnormal mammogram of left breast Atypical ductal hyperplasia of left breast Procedures SEED LOCALIZED EXCISIONAL LEFT BREAST BIOPSY Referral ID Status Reason Start Date Expiration Date Visits Re quested Visits Authorized [id number] 1 1 Encounter Details Date Type Department Care Team (Late st Contact Info) Description 06/25/2025 7:30 AM CDT - 06/25/2025 8:55 AM CDT [facility] [address] [place], [place] [id number] Kunal Arevalo MD [address] [place], [place] [phone] SEED LOCALIZED EXCISIONAL LEFT BREAST BIOPSY Social History Tobacco Use Types Packs/Day Years [...] 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 Appointments: [phone] * Discharge Instr - Wound Care* Kunal [...] Role: * Kunal Arevalo MD - Primary Geoscience Technician Sheyla Ohara DO [facility] surgery resident Preoperative Diagnosis Abnormal mammogram [...] in agreement. I started by using the [employer] system to identify the localizer seed. It [...] Arevalo MD - 06/25/2025 8:56 AM CDT [facility] Brief Operative Progress Note Surgery Date: 06/25/2025 [...] Appointment Specialty Center 3931 General Surgery [address] [facility] [address] [place] [address] Kunal Arevalo MD [address] [place] [address] Pending Results Name Type Priority Associated Diagnoses [...] Date Dose Rate Site BUPivacaine-EPINEPHrine (SENSORCAINE) 0.25% -1:[id number] injection ONCE PRN, Starting on Meli 06/25/25 at 0839, Until Meli 06/25/25 at 1207, Intra-op Given 06/25/2025 8:39 AM CDT 15 mL Wound Site diphenhydrAMINE (BENADRYL) injection 25 mg 25 mg, Intravenous, ONCE PRN, Hives, Other, pruritus, Starting on Meli 06/25/25 at 0622, Until Meli 06/25/25 at 1207, For 1 dose, Notify anesthesia if given., PACU/Recovery ePHEDrine 5 mg/mL injection 5-10 mg, Intravenous, [id number], Other, For systolic blood pressure less than 90 mmHg, Starting on Meli 06/25/25 at 0622, Until Meli 06/25/25 at 1207, Notify anesthesia if given. Max cumulative dose: 15 mg, PACU/Recovery fentaNYL (SUBLIMAZE) injection 25-50 mcg 25-50 mcg, Intravenous, [id number], Pain, Procedure, Starting on Meli 06/25/25 at 0622, Until Meli 06/25/25 at 1207, For 2 doses, As directed by anesthesiologist, Pre-op fentaNYL (SUBLIMAZE) injection 50 mcg 50 mcg, Intravenous, [id number], Pain, the immediate postop period when longer [...] (VERSED) injection 1-2 mg 1-2 mg, Intravenous, [id number], Sedation, Anxiety, Procedure, Starting on Meli 06/25/25 [...] is complete: Infused]) PRN Medication Order 06/23/2025 06/24/202506/25/2025 BUPivacaine-EPINEPHrine (SENSORCAINE) 0.25% -1:[id number] injection ONCE PRN, Starting on Meli 06/25/25 [...] ePHEDrine 5 mg/mL injection 5-10 mg, Intravenous, [id number], Other, For systolic blood pressure less than 90 mmHg, Starting on Meli 06/25/25 at 0622, Until Meli 06/25/25 at 1207, Notify anesthesia if given. Max cumulative dose: 15 mg, PACU/Recovery fentaNYL (SUBLIMAZE) injection 25-50 mcg 25-50 mcg, Intravenous, [id number], Pain, Procedure, Starting on Meli 06/25/25 at 0622, Until Meli 06/25/25 at 1207, For 2 doses, As directed by anesthesiologist, Pre-op fentaNYL (SUBLIMAZE) injection 50 mcg 50 mcg, Intravenous, [id number], Pain, the immediate postop period when longer [...] (VERSED) injection 1-2 mg 1-2 mg, Intravenous, [id number], Sedation, Anxiety, Procedure, Starting on Meli 06/25/25 [...] (only) documented in this encounter Care Teams Solid Waste Division Supervisor Relationship Specialty Start Date End Date Homa Mariano PA-C [address] [place] [address] PCP - General Physician Geoscience Technician 06/25/25 documented as of this encounter
--- OUTSIDE RECORDS SUMMARY | 2025-06-25 07:30 | XMS_ITS | Encounter Summary ---
Author Organization [facility] Address [address], [place] [address] Care Team Providers Care Electrical Sign Servicer Name Role Phone Homa Mariano PA-C Primary Care Provid er Reason for Visit * Procedure/Equipment (Routine) - Incomplete Specialty Diagnoses / Procedures Referred By Kelly vergara Referred To Contact Diagnoses Abnormal mammogram of left breast Atypical ductal hyperplasia of left breast Procedures MM Breast Specimen Kunal Arevalo MD [address] [place] [address] Phone: tel: fax: Referral ID Status Reason Start Date Expiration Date V isits Requested Visits Authorized [id number] Incomplete 06/02/2025 09/01/2026 1 1 Encounter Details Date Type Department Care Team (Late st Contact Info) Description 06/25/2025 7:30 AM CDT Ancillary Procedure [facility] Mammography at [facility] [place] [address] [address] [facility]. 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 Not on file Not on file Not on fi le documented as of this encounter Plan of Treatment Upcoming Encounters Date Type Department Care Team (Late st Contact Info) Description 07/10/2025 8:40 AM CDT Appointment Specialty Center 3931 General Surgery [address] [facility] [address] [place], [place] [address] Kunal Arevalo MD [address] [place], [place] [address] documented as of this encounter Procedures Procedure Name Priority Date/Time Associated Diagnosis Comments MM BREAST SPECIMEN Routine 06/25/2025 8: 41 AM CDT Abnormal mammogram of left breast Atypical ductal hyperplasia of left breast documented in this encounter Results * MM Breast Specimen (06/25/2025 8:41 AM CDT) Anatomical Region Laterality Modality Breast Digital Radiogra phy Narrative 06/25/2025 8:58 AM CDT Specimen Radiograph Radiograph of the surgical specimen demonstrates the clip and seed. Results were communicated to the operating room. Signed by: Torsten Schneider 06/25/2025 8:58 AM [facility] Accredited Facility: [facility] [address] Procedure Note Torsten Schneider MD - 06/25/2025 Specimen Radiograph Radiograph of the surgical specimen demonstrates the clip and seed.Results were communicated to the operating room. Signed by: Torsten Schneider 06/25/2025 8:58 AM [facility] Accredited Facility: [facility] [address] us Kunal Arevalo MD RAD JUNE Final Result documented in this encounter Visit Diagnoses Diagnosis Abnormal mammogram of left breast Atypical ductal hyperplasia of left breast documented in this encounter Care Teams Electrical Sign Servicer Relationship Specialty Start Date End Date Homa Mariano PA-C [address] [place], [place] [phone] PCP - General Physician Steel Placer 06/25/25 documented as of this encounter
--- OUTSIDE RECORDS SUMMARY | 2025-06-25 07:55 | XMS_ITS | Encounter Summary ---
Author Organization [facility] Address [address], [place] [address] Care Team Providers Care Account Services Representative Name Role Phone Homa Mariano PA-C Primary Care Provid er Reason for Visit * Auth/Cert (Routine) Specialty Diagnoses / Procedures Referred By Kelly vergara Referred To Contact Diagnoses Abnormal mammogram of left breast Atypical ductal hyperplasia of left breast Procedures SEED LOCALIZED EXCISIONAL LEFT BREAST BIOPSY Referral ID Status Reason Start Date Expiration Date Visits Re quested Visits Authorized [id number] 1 1 Encounter Details Date Type Department Care Team (Late st Contact Info) Description 06/25/2025 7:55 AM CDT Anesthesia Event [facility] [address] [facility] [place] [address] Anders Simmons MD [address] [place], [place] [phone] Cynthia Easley Anesthesia Record Procedure Summary Procedure Name Responsible Anesthesiologist Anesthesia Start Time Anesthesia Stop Time SEED LOCALIZED EXCISIONAL LEFT BREAST BIOPSY (Left: Breast) Anders Simmons MD 06/25/25 0755 06/25/25 0903 Events Date Time Event Comment 06/25/2025 0715 Quick Note Hayder, LEVY part icipating in case. LINES TENDER present for the entire case. 0755 An Start 0757 An Start Data 0757 Face Tent 0800 MD/DO Present 0816 An Local Anesthetic By Surge on 0858 an stop data 0903 Care Handoff Note I discusse d with the receiving nurse and we: 1) Identified the patient, galo family member(s) or patient surrogate 2) Identified the responsible practitioner 3) Reviewed the pertinent medical history 4) Discussed the surgical/procedure course 5) Reviewed intra-op anesthesia management and issues during anesthesia 6) Set expectations for the post-procedure period 7) Allowed opportunity for questions and acknowledgement of understanding of report Electronically signed by Cristofer Cortez APRN, LINES TENDER 0903 An Stop Care transferre d. Meds Name Total midazolam injection 2 mg/2 mL (VERSED) 2 mg fentaNYL injection (SUBLIMAZE) 50 mcg lidocaine 1% PF injection (XYLOCAINE) 40 mg propofol 10 mg/mL for procedural sedatio n (aka diPRIvan) 70 mg propofol 10 mg/mL for procedural sedatio n (aka diPRIvan) 281.69 mg ondansetron injection (ZOFRAN) 4 mg ketorolac 15 mg/mL injection (TORADOL) 1 5 mg vancomycin (VANCOCIN) 1,250 mg in sodium chloride 0.9 % 250 mL IVPB 0 mg dexAMETHasone (DECADRON) 4 mg/mL injecti on 4 mg lactated ringers infusion 600 mL * Agents Name 02 Delivery Device O2 N2O Air Nitrous Oxide () * Blood No blood administrations on file. 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 on file Not on file 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 Not on file Not on file Not on fi le documented as of this encounter Miscellaneous Notes * Anesthesia Postprocedure Evaluation - Anders Simmons MD - 06/25/2025 10:13 AM CDT [facility] Anesthesia Post-op Note Patient: Мария Jay Post-Op Diagnosis: Pre-Op Diagnosis Codes: * Abnormal mammogram of left breast [R92.8] * Atypical ductal hyperplasia of left breast [N60.92] Procedures performed: SEED LOCALIZED EXCISIONAL LEFT BREAST BIOPSY (Left: Breast) Anesthesia Type: MAC Post-op vital signs: Vitals Value Taken Time BP 132/82 06/25/25 09:46 Temp 36.5 ??C (97.7 ??F) 06/25/25 09:02 Pulse 77 06/25/25 09:50 Resp 16 06/25/25 09:15 SpO2 96 % 06/25/25 09:50 Vitals shown include unfiled device data. Pain Assessment Preferred Pain Scale: number (Numeric Rating Pain Scale) Last recorded pain score: 0 Post-op assessment: Patient location: Phase 2 Airway Status: Patent Cardiovascular function: Satisfactory Hydration status: Satisfactory PONV: None Level of Consciousness: Awake Fully Participates Postop Assessment: Patient tolerated procedure well. Electronically signed by: Anders Simmons MD 06/25/2025 10:13 AM * Anesthesia Preprocedure Evaluation - Anders Simmons MD - 06/25/2025 7:01 AM CDT [facility] Anesthesia Pre-op Evaluation Procedure: SEED LOCALIZED EXCISIONAL LEFT BREAST BIOPSY, Left HPI: 69 y.o. old female. Pre-Op Diagnosis Codes: * Abnormal mammogram of left breast [R92.8] * Atypical ductal hyperplasia of left breast [N60.92] Last Fluid Intake Time: 2099 Last Fluid Intake Date: 06/24/25 Last Food Intake Date: 06/24/25 Last Food Intake Time: 2099 Allergies Allergen Reactions Latex Rash Amoxicillin Hives Blue Dye #2 ([place]) Hives Cefaclor Anaphylaxis Clindamycin Anaphylaxis Other Anaphylaxis Air freshener, anaphylactic reaction, uses epi pen Azithromycin Rash Ciprofloxacin Unknown Paroxetine Other, see comments diarrhea Caffeine Headache and Tachycardia migraine Past Medical History: Diagnosis Date Bipolar I disorder, most recent episode (or current) unspecified (HRC) 10/12/2006 Import from [facility] Migraine Without Aura 04/04/2003 Overweight (HRC) 11/23/2014 Pain Low Back 04/04/2003 Varicella 11/17/2010 LW Onset: childhood ; Varicella Zoster Patient Active Problem List Diagnosis Overweight (HRC) Abnormal mammogram of left breast Fatty liver (HRC) History of shingles Irritable bowel syndrome with constipation Mixed hyperlipidemia (HRC) Prediabetes Environmental allergies Decreased hearing, bilateral Age-related osteoporosis without current pathological fracture (HRC) Low vitamin D level Atypical ductal hyperplasia of left breast Past Surgical History: Procedure Laterality Date TONSILLECTOMY WISDOM TEETH EXTRACTION Outpatient Medications as of 06/25/2025 Medication Sig ALFALFA OIL OR Take by mouth. Reported on 01/10/2017 CALCIUM OR Take by mouth. Cholecalciferol 400 UNITS Take by mouth. diphenhydrAMINE (BENADRYL) 12.5 MG/5ML elixir Take 5 mL (12.5 mg) by mouth. EPINEPHrine (EPIPEN) 0.3 MG/0.3ML injection Inject 0.3 mL intramuscularly as needed. May repeat. loratadine (CLARITIN) 10 MG tablet Take 1 Tablet (10 mg) by mouth daily. Multiple Vitamins-Minerals (MULTIVITAMIN OR) Take 1 tablet by mouth daily (every 24 hours). Probiotic Product (PROBIOTIC OR) Facility-Administered Medications as of 06/25/2025 Medication Dose Route Frequency ceFAZolin (ANCEF) 2 g in sterile water for injection 20 mL premade IV syringe 2 g Intravenous Once diphenhydrAMINE (BENADRYL) injection 25 mg 25 mg Intravenous ONCE PRN ePHEDrine 5 mg/mL injection 5-10 mg Intravenous Q5MIN PRN fentaNYL (SUBLIMAZE) injection 25-50 mcg 25-50 mcg Intravenous Q5MIN PRN fentaNYL (SUBLIMAZE) injection 50 mcg 50 mcg Intravenous Q5MIN PRN HYDROmorphone (DILAUDID) injection 0.25 mg 0.25 mg Intravenous Q10MIN PRN labetalol (NORMODYNE) injection 5 mg 5 mg Intravenous Q10MIN PRN lactated ringers infusion 25 mL/hr Intravenous Continuous [COMPLETED] lidocaine PF (XYLOCAINE) 1 % injection 0.1-0.3 mL 0.1-0.3 mL Intradermal Once And lidocaine PF (XYLOCAINE) 1 % injection 0.1-0.3 mL 0.1-0.3 mL Intradermal PRN midazolam (VERSED) injection 1-2 mg 1-2 mg Intravenous Q5MIN PRN ondansetron (ZOFRAN) injection 4 mg 4 mg Intravenous Q4H PRN prochlorperazine (COMPAZINE) injection 5 mg 5 mg Intravenous Q15MIN PRN Labs: Lab Results Component Value Date/Time K 4.4 01/10/2010 04:45 PM BUN 17 03/13/2000 09:32 AM CREATININE 0.9 03/13/2000 09:32 AM GLUCOSE 94 09/26/2017 02:56 PM Lab Results Component Value Date/Time WBC 7.4 11/22/2012 10:10 AM HGB 13.4 11/22/2012 10:10 AM HCT 39.3 11/22/2012 10:10 AM PLTS 225 11/22/2012 10:10 AM No results found for: INR Blood Bank: No results found for: ABO, ABSCR EKG: No results found for this or any previous visit. Physical Exam: BP (!) 156/89 Pulse 78 Temp 36.2 ??C (97.2 ??F) (Temporal Artery) Resp 16 LMP 11/23/2007 SpO2 97% Assessment/Plan: Review of Systems Patient does not have GERD. Patient is not a current smoker. The patient denies alcohol use. Patient denies any recent URI. History of PONV: No. History of motion sickness: No. Patient denies any personal or family history of anesthesia complications. NPO Status: Acceptable. Exam Mental Status: Alert and oriented. Mallampati score: II (Two). Mouth opening: Normal Thyromental Distance: > 3 finger breadths and Normal Neck Extension: Full Neck Circumference > 40 cm?: No Previous airway assessment: No prior intubations. Current airway assessment:Normal Dentition: Age appropriate. Cardiac Exam: Regular rate and rhythm. Respiratory Exam: Breath sounds clear to auscultation Assessment ASA Status: 2 . Plan Anesthesia type: MAC Induction: Propofol Maintenance: TIVA Postoperative pain management: Plan for postoperative opioid use PONV Risk Score Adult: 3 PONV Prophylaxis (planned): Ondansetron and Decadron Anesthetic plan, risks, benefits and alternatives discussed with the patient who agrees to the anesthesia treatment plan. The patient and/or their hobbies and crafts sales representative were notified about the potential risks of damage to the lips, teeth, dental devices, mouth and airway. H&P Reviewed and Patient examined, no change observed IV access Antibiotics per surgery Electronically signed by: Anders Simmons MD 06/25/2025 7:01 AM documented in this encounter Plan of Treatment Upcoming Encounters Date Type Department Care Team (Late st Contact Info) Description 07/10/2025 8:40 AM CDT Appointment Specialty Center 39[address] General Surgery [address] [facility] [address] [place], [place] [phone] Kunal Arevalo MD [address] [place] [address] documented as of this encounter Visit Diagnoses Not on filedocumented in this encounter Administered Medications Inactive Administered Medications - up to 3 most recent administrations Medication Order MAR Action Action Date Dose Rate Site dexAMETHasone (DECADRON) injection Intravenous, Starting on Meli 06/25/25 at 0803, Until Meli 06/25/25 at 0903 Given 06/25/2025 8:03 AM CDT 4 mg fentaNYL (SUBLIMAZE) injection Intravenous, Starting on Meli 06/25/25 at 0757, Until Meli 06/25/25 at 0903 Given 06/25/2025 8:19 AM CDT 25 mcg Given 06/25/2025 7:57 AM CDT 25 mcg ketorolac (TORADOL) injection Intravenous, Starting on Meli 06/25/25 at 0851, Until Meli 06/25/25 at 0903 Given 06/25/2025 8:51 AM CDT 15 mg lactated ringers infusion 25 mL/hr, Intravenous, CONTINUOUS, Starting on Meli 06/25/25 at 0630, Administer on all preop surgery patients, ages 12 and older, unless specified differently in the Protocol for Preop Initiation of IV fluids Order Set., Pre-op Continued by Anesthesia 06/25/2025 7:55 AM CDT 25 mL/hr Started 06/25/2025 6:33 AM CDT 25 mL/hr 25 mL/hr lidocaine PF (XYLOCAINE) 1 % injection Intravenous, Starting on Meli 06/25/25 at 0801 Given 06/25/2025 8:01 AM CDT 40 mg midazolam (VERSED) injection Intravenous, Starting on Meli 06/25/25 at 0757, Until Meli 06/25/25 at 0903 Given 06/25/2025 7:57 AM CDT 2 mg ondansetron (ZOFRAN) injection Intravenous, Starting on Meli 06/25/25 at 0803, Until Meli 06/25/25 at 0903 Given 06/25/2025 8:03 AM CDT 4 mg propofol (DIPRIVAN) 10 mg/mL injection Intravenous, Starting on Meli 06/25/25 at 0803, Until Meli 06/25/25 at 0903 Given 06/25/2025 8:21 AM CDT 10 mg Given 06/25/2025 8:16 AM CDT 20 mg Given 06/25/2025 8:14 AM CDT 10 mg propofol (DIPRIVAN) 10 mg/mL injection Intravenous, Starting on Meli 06/25/25 at 0803, Until Meli 06/25/25 at 0903 Rate/Dose Change 06/25/2025 8:29 AM CDT 90 mcg/kg/min 41.904 mL/hr Rate/Dose Change 06/25/2025 8:19 AM CDT 100 mcg/kg/min 46. 56 mL/hr Started 06/25/2025 8:03 AM CDT 80 mcg/kg/min 37.248 mL/ hr documented in this encounter Care Teams Account Services Representative Relationship Specialty Start Date End Date Homa Mariano PA-C [address] [place] [address] PCP - General Physician Shoe Ironer 06/25/25 documented as of this encounter
[2025-06-27 01:31] VITALS: BP 126/82; PULSE 59; RESP 16; TEMP 36.3; O2SAT 95; BMI 28.9
--- NOTE | 2025-06-27 02:15 | ED.GENADULT ---
HPI - General Adult General Chief complaint: Allergic Reaction Stated complaint: Rash over body Time Seen by Provider: 06/27/25 01:48 Source: patient Mode of arrival: ambulatory Limitations: no limitations History of Present Illness HPI narrative: 69-year-old female presents the emergency department 2 days postop from a left breast biopsy. Results are still pending. Yesterday she started to notice irritation of the skin of the chest, left arm and lower neck area. Seems to be worsening overnight. Has been in contact with her surgical team. Is not noticing any swelling of the inside of the mouth, lips, tongue or in her throat but does notice the rash creeping up more intensely along her neck. Does actually seem to think it has gone down now while waiting to be seen in the emergency room. Itches slightly, has not applied any topical agents. Was advised to wash the skin of the neck, chest and arm very well from her surgical nurse, perfect advice. She reports that she tried to scrub the purple khalil off and those would not come off is easily. She did not aggressively scrubbed over the surgical site itself but more so to the soap prep areas. She has been using Benadryl and does already take daily Claritin. Is worried that the rash was becoming more concerning and was wondering if intervention was needed. She is not having any diarrhea, no dizziness, no lightheadedness, no shortness of breath. No prior history of similar reactions but has not had any surgery since she was a small child having a tonsillectomy. She does not take any long-term medications. No history of anaphylactic type reactions to any foods or other topical agents. Does have a penicillin drug allergy. Past medical history is really benign. No major long-term health problems. No long-term prescription medications. No other new exposures besides the surgery. ROS is notable for the skin concerns only. Otherwise denies any cardiovascular, respiratory, hematological, immunological, HEENT or GI changes. Related Data Previous Rx's ?Medication ?Instructions ?Recorded triamcinolone acetonide 0.1 % 1 applic topical BID PRN #80 grams 06/27/25 topical ointment Allergies Allergy/AdvReac Type Severity Reaction Status Date / Time amoxicillin Allergy Verified 06/27/25 02:09 Penicillins Allergy Verified 06/27/25 02:09 Surgical soap AdvReac Intermediate Rash Uncoded 06/27/25 02:09 PFSH PFSH Social History Non-prescribed substance use: denies use Exam Const: Vital Signs, click to edit/add: Vital Signs - 24 hr 06/27/25 01:31 Temperature 97.3 F L Pulse Rate [Left P ulse Oximeter] 59 L Respiratory Rate 16 Blood Pressure [Ri ght Upper Arm] 126/82 Pulse Oximetry 95 Oxygen Delivery Me thod Room Air Documenting provider has reviewed patient's vital signs: yes Common normals: no apparent distress General appearance: cooperative and well kempt Other: Excellent historian and mentation. Friendly and cooperative HENMT: Common normals: moist oral mucous membranes, oropharynx normal and gingiva normal Face and sinus: normal facial exam Mouth: oral and palatal mucosa normal and tongue normal Throat: posterior oropharynx normal Eye: Common normals: conjunctivae normal General eye: normal appearance of both eyes Conjunctiva: conjunctiva(e) normal Neck & C-Spine: Common normals: full ROM Other: Very mild superficial skin reaction, macular in nature, not hives along the neck. Does stop well below the mandible Chest: Other: Surgical incision on left breast appears to be healing well, sutures are of course quite fresh. But there is no surrounding redness, drainage and the rash actually does not extend into this area as strongly. Remainder of the chest wall has fine macular rash across the torso and down to the groin area, fine in nature, no excoriation, redness or warmth. Thickened a little more along the lower neck, does not currently extend on to the arms. Resp: Common normals: normal respiratory effort, no use of accessory muscles and clear to auscultation bilaterally Effort & inspection: able to speak in complete sentences Auscultation: clear to auscultation bilaterally Cardio: Common normals: regular rate, regular rhythm, S1 normal heart sound, S2 normal heart sound and no murmurs Rate: regular rate Rhythm: regular rhythm Heart sounds: S1 normal and S2 normal Extremity: Common normals: normal to inspection Psych: Appearance: well kempt Attitude: engaged Mood and affect: euthymic mood Skin: Narrative: Fine macular rash on the chest, lower neck and abdomen, does not extend to the back and currently does not extend down the arms. Course Course ED Course: Differential diagnosis including anaphylactic reaction, contact dermatitis, cellulitis, wound infection, other complication. Exam and history consistent with contact dermatitis, likely from surgical so. Has been added to her allergy list. Counseled patient that this is not really a type 1 hypersensitivity reaction and does not tend to progress and anaphylaxis though the immune system can be a bit of a tricky beast. I would like for her to take Claritin 2 times daily for the next week. Counseled patient that heat and sun exposure will worsen the rash which did likely have a part in the worsening around her neck today. Once the reaction has started, it is difficult to stop completely and tends to last about 10 days. At this point, prednisone would be an option but since her rash is still fairly mild it is not necessary. We discussed that there can be some side effects from prednisone and it can also slightly slow wound healing and slightly increase her risk of infection. She does not feel like she needs to take on that risk and I am in agreement but I would like for her to have access to the medication over this holiday weekend if her symptoms worsen. I let her know that if she becomes more symptomatic including itching, progression of the rash, thickening of the rash, these would all be really good reasons to go ahead and start the prednisone as the risk is quite small but it is not absolutely necessary for her to started at this time. We reviewed Benadryl and how it can have some added benefit though a lot of side effects. Trying to avoid heat and sun exposure is paramount. Cool compresses and cold showers can help if she is temporarily uncomfortable and that the rash may wax and wane somewhat over the next 10 days. Keep in close contact with her surgeon. I have also advised that she apply plain Vaseline over the surgical site but that she use triamcinolone ointment to the other affected areas, avoiding at least 2 in border around the surgical incision to help with discomfort and help with the intensity of the rash. She accepts a prescription for this. Instructed her to dilute the very highly concentrated triamcinolone ointment with about 2/3 Vaseline and 1/3 medication product before applying to the skin 2 times daily for the next few days. She verbalizes understanding and agreement. We then extensively reviewed signs and symptoms of anaphylaxis which would all the reasons to come back to the ED. Written instructions are provided as well. Vital Signs Vital signs: Initial Vital Signs Temperature 97.3 F L 06/27/25 01:31 Temperature Source Temporal Artery Scan 06/27/25 01:31 Pulse Rate 59 L 06/27/25 01:31 Pulse Rhythm Regular 06/27/25 01:31 Respiratory Rate 16 06/27/25 01:31 Blood Pressure 126/82 06/27/25 01:31 Blood Pressure Mean 96 06/27/25 01:31 Blood Pressure Position Sitting 06/27/25 01:31 Pulse Oximetry 95 06/27/25 01:31 Oxygen Delivery Method Room Air 06/27/25 01:31 Vital Signs Temperature 97.3 F L 06/27/25 01:31 Pulse Rate 59 L 06/27/25 01:31 Respiratory Rate 16 06/27/25 01:31 Blood Pressure 126/82 06/27/25 01:31 Pulse Oximetry 95 06/27/25 01:31 Oxygen Delivery Method Room Air 06/27/25 01:31 Temperature 97.3 F L 06/27/25 01:31 Pulse Rate 59 L 06/27/25 01:31 Respiratory Rate 16 06/27/25 01:31 Blood Pressure 126/82 06/27/25 01:31 Pulse Oximetry 95 06/27/25 01:31 Oxygen Delivery Method Room Air 06/27/25 01:31 Discharge Plan Discharge Clinical Impression: Contact dermatitis Patient Disposition: Home w/ Parent or Adult Condition: Stable Instructions: Contact Dermatitis (DC) Additional Instructions: As we discussed, you are having a hypersensitivity reaction to the surgical prep soap. Unfortunately this is a little common. You did an excellent job of washing the soap off appear skin. But the inflammation has already started and will need to run its course. This typically takes about 10 days. There are no signs of infection. The reaction is often more strong on the neck just because of the type of skin there. There are no signs of an anaphylactic or type 1 hypersensitivity reaction. This means that this is not life-threatening though it can be uncomfortable. For now, I want you taking Claritin 2 times daily. You may add in Benadryl for itch. Remember that heat and sun exposure will make the rash flare more. Cold compresses, cool showers and cool temperatures will help temporarily reduce it somewhat. I want plain Vaseline only over the surgical site. But to the remaining skin areas that are affected, I will give a prescription of triamcinolone ointment. Use this sparingly to the most affected rash areas 2 times daily. It is very potent, you may dilute it with 1/3 medication and 2/3 plain Vaseline to help with coverage. Remember to avoid at least a 2 in area around the surgical incision with application of the steroid. Do not worry about scrubbing off the purple surgical marker sites, those are not driving the reaction. I have also given you a prescription for prednisone. This is an anti-inflammatory medicine that can often help reduce the reaction. It may slow down wound healing and increase your risk of infection slightly. Because her reaction is not severe at this point, I want you to just hold onto the prescription over this holiday weekend and have it available if things get more uncomfortable or feel like they are worsening. I do feel like the benefit of the medication outweighs the risk for you but I do not think that it is absolutely necessary at this time. If things become bothersome please go ahead and start the prednisone. Try not to take it within 3 hours of bedtime as it can be a bit stimulating. Remember that if you start having symptoms of an anaphylactic reaction like swelling of the lips, tongue, oral airway, severe shortness of breath, itching of the throat, please come back to the emergency room. This is highly unlikely as the reactions are actually driven by different parts of your immune system. It is still okay to use Tylenol, ibuprofen and other typical medications to treat the pain associated with the surgical biopsy. Activity Level: Activity as Tolerated Discharge Diet: Regular Prescriptions: New triamcinolone acetonide 0.1 % ointment 1 applic topical BID PRNQty: 80 1RF Stand Alone Forms: [facility] Info Instructions
--- OUTSIDE RECORDS SUMMARY | 2025-06-27 02:28 | XMS_ITS | Referral Summary ---
Author Organization [employer] Address [address] [place] [address] Care Team Providers Care Hematologist Oncologist Name Role Phone Petra Hill MD Primary Care Provider [phone] Allergies Active Allergy Reactions Criticality Noted Date Comments Azithromycin Unknown 03/14/2021 Cefaclor Anaphylaxis High 12/26/2021 Clindamycin Anaphylaxis High 12/26/2021 Penicillins Unknown 03/14/2021 Other reaction(s): Pruritic rash Medications zinc 50 mg tablet Ac tive calcium-vitamin D3-vitamin K 500 mg-1,000 unit-40 mcg tablet,chewable Acti ve Lactobacillus acidophilus 10 billion cell capsule Active loratadine (Claritin) 10 mg tablet Take by mouth. Active multivitamin oral liquid Take 5 mL by mouth daily. Active Active Problems Problem Noted Date Diagnosed Date Decreased hearing, bilateral 01/07/2025 Abnormal mammogram of left breast 10/14/2024 Overview (10/14/2024): BIRADS 3; repeat US due in March 2025 Age-related osteoporosis wit hout current pathological fracture 04/14/2024 Overview (10/14/2024): Taking AlgaeCal Plus; started in February: started weight-training Low vitamin D level 04/14/2024 Overview (10/14/2024): Started AlgaeCal Plus (03/2024) Now vit D wnl Encounter for annual wellnes s visit (AWV) in Medicare patient 12/20/2023 Overview (01/07/2025): Patient is a 69 y.o. female who presents for annual Medicare wellness exam Functional ability/safety screening: Fall risk and safety assessment: reviewed ADLs: patient independently able to form ADLs Hearing difficulties: a little, referred to audiology Cognitive functional screening: General appearance, affect, speech, memory, and motor skills normal Opiate use: no Evaluation of cognitive function: Mood/affect: pretty good Appearance: normal Family member/caregiver input: none today Advanced directives: pt planning to put in place Vaccines: Pneumococcal: declines Influenza: recommend annually HepB: n/a Td: up to date, last 2020 Zoster: declines Covid-19: declines RSV: declines Screening tests: Breast/Pelvic exam: defer Colorectal cancer screening: colonoscopy was scheduled December 2023 but was delayed. Pt will go down to re-schedule. Prostate cancer screening: n/a Glaucoma screening: recommend annual eye exam Lab tests: Cardiovascular disease screening: last lipids December 2024 Diabetes screening: last A1c/FBG December 2024 HIV screening: low risk HCV screening: non-reactive Radiology screening tests: AAA: n/a Bone mass: DEXA done 2023-- osteoporosis. Taking algaecal supplement Mammogram: BIRADS 3 in Sep [address]: n/a Counseling: Alcohol misuse reduction: n/a Cardiovascular disease: n/a Depression: PHQ-9 Total Score: 0 (01/07/2025 8:23 AM) Diabetes self management training and nutrition: n/a Obesity: Body mass index is 27.44 kg/m .. Counseled on diet and exercise. . Sexually transmitted infection: low risk Tobacco cessation counseling: n/a LLQ pain 11/21/2023 Fatty liver 11/14/2023 Intermittent left lower quadrant abdominal pain 11/01/2023 Assessment & Plan (11/01/2023 11:08 AM [facility]): Recommended CT scan, however, patient would rather do Ultrasound therefore US of abdomen ordered. UA unable to be completed in office due to patient not being able to urinate. UA with reflex ordered to [facility]. Recommended to Continue the dietary changes recommended in the ER, continue to work on increasing water intake, water intake should be at least 64 oz/ day. Mixed hyperlipidemia 12/28/2021 Overview (01/07/2025): Chronic. Stable. Recommended statin; pt declines Discussed [...] Total Cholesterol: 206 mg/dL Prediabetes 12/28/2021 Overview (04/14/2024): Chronic. Stable. The hemoglobin A1c is in the pre-diabetic range. Limiting simple carbohydrates and sugars in the diet will help prevent progression to diabetes. Moderate physical activity 150 minutes per week is also recommended. Environmental allergies 12/26/2021 Overview (12/26/2021): Severe allergies to air fresheners and fabric softeners. Irritable bowel syndrome with constipation 12/26 Overview (11/14/2023): Encouraged increased fiber and fluid intake. Titrate miralax to comfort. Re- referred to colonoscopy. If LLQ recurs/worsens, will encouraged pt again toward CT scan of abdomen. Assessment & Plan (12/26/2021 12:46 PM [facility]): Chronic; stable. Screen for colon cancer 12/26/2021 Assessment & Plan (12/26/2021 12:46 PM [facility]): Discussed options for colon cancer screening including gold standard colonoscopy, Cologuard, and FIT testing. Discussed with pt that if Cologuard or FIT are positive/abnormal, they would be referred for colonoscopy. Pt verbalized understanding of the options, risks, and benefits, and wishes to proceed with colonoscopy referral. Visit for preventive health examination 12/26/19 Overview (12/26/2021): No longer needs pap. Assessment & Plan (12/26/2021 12:45 PM MST): Mammo ordered Colonoscopy ordered DEXA ordered Discussed vaccines; pt declined. History of COVID-19 12/26/2021 Overview (12/26/2021): Aug - Sep 2020; mild. Need for vaccination 12/26/2021 Overview (12/26/2021): Recommended age-appropriate vaccines. Pt declines covid-19, influenza, shingles, and pneumococcal vaccines. History of shingles 12/26/2021 Encounter for screening mamm ogram for malignant neoplasm of breast 12/26/2021 Assessment & Plan (12/26/2021 12:44 PM MST): Recommended and ordered mammogram. Abnormal blood chemistry 12/26/2021 Assessment & Plan (12/26/2021 12:44 PM MST): Hypoglycemia associated with syncopal episode in the past. Resolved Problems Problem Noted Date Diagnosed Date Resolved Date History of anemia 12/26/2021 11/14/2023 Overview (12/26/2021): Resolved since menopause. Elevated blood-pressure read ing without diagnosis of hypertension 12/26/2021 10/14/2024 Assessment & Plan (12/26/2021 12:46 PM MST): Normal on repeat. 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) Social History Tobacco Use Types Packs/Day Years Used Date Smoking Tobacco: Never Passive Smoke Exposure: Never Smokeless Tobacco: Never Tobacco Cessation:Counseling Given: Not Answered Alcohol Use Standard Drinks/Week Comments Yes 0 (1 standard drink = 0.6 oz pur e alcohol) Occ glass PHQ-2 Answer Date Recorded PHQ-2 Total Score 0 01/07/2025 Comments No Sex and Gender Information Value Date Recorded Sex Assigned at Not on file Legal Sex Female 8:17 PM MDT Gender Identity Not on file Sexual Orientation Not on file Last Filed Vital Signs Vital Sign Reading Time Taken Comments Blood Pressure 116/72 01/07/2025 8:20 AM MDT Pulse 76 01/07/2025 8:20 AM MDT Temperature 36.3 C (97.4 F) 01/07/2025 8:20 AM MDT Respiratory Rate 16 11/21/2023 2:18 PM MST Oxygen Saturation 96% 01/07/2025 8:20 AM MDT Inhaled Oxygen Concentration - - Weight 77.1 kg (170 lb) 01/07/2025 8:20 AM MDT Height 167.6 cm (5' 6) 01/07/2025 8:20 AM MDT Body Mass Index 27.44 01/07/2025 8:20 AM MDT Plan of Treatment Not on file Procedures Procedure Name Priority Date/Time Associated Diagnosis Comments MA DIAGNOSTIC MAMMOGRAM WITH TOMOSYNTHESIS BILATERAL Routine 10/06/2024 2:03 PM MST Breast pain, left DEXA BONE DEN HIP PEL SP WO VFA Routine 01/16/2024 1:35 PM MDT Asymptomatic menopausal state Family history of osteoporosis HEPATITIS C AB Routine 12/27/2021 7:10 AM MST Encounter for hepatitis C screening test for low risk patient from Last 3 Months or Most Recently Relevant to Health Maintenance Results * MA Diagnostic Mammogram With Tomosynthesis Bilateral (10/06/2024 2:03 PM MST) Anatomical Region Laterality Modality Breast Bilateral Mammography 10/06/2024 2:04 PM MST Impressions 10/07/2024 12:34 PM MST Wilner Chatman 8 lifetime risk of breast cancer: 7.4% BIRADS 3 Probably Benign Short Interval Follow-Up in 6 Months Left Citizen Of [place] [employer] Current Recommendation: Annual Mammogram after Age 40. This examination was reviewed with computer-aided detection (Suite101) (Version 1.7.3). GENERAL OBSERVATIONS ABOUT MAMMOGRAPHY: 1. 10-15% of breast cancers are not identified (false negative). 2. A negative report should not delay biopsy if a dominant or clinically suspicious mass is palpable. 3. Adenosis and/or dense breasts may obscure neoplasm. 4. False positive reports average 5%. WS: [id number] DICTATED BY: Armando Estrada Date: 10/06/2024 14:04 MT TRANSCRIBED DATE: 10/06/2024 14:06 MT Narrative 10/07/2024 12:34 PM [facility] EXAM: MA DIAGNOSTIC MAMMOGRAM WITH TOMOSYNTHESIS BILATERAL, US BREAST LIMITED LEFT INDICATIONS: Left breast pain. Screening right breast mammogram. FINDINGS: The breasts are heterogeneously dense, which may obscure small masses. Scattered benign-appearing microcalcifications both breasts. Nothing specific for malignancy in either breast. No mass or suspicious microcalcifications. Focal asymmetry in the outer left breast is less conspicuous than on 11/24/2023 examination. COMPARISON: 11/24/2023. Scattered benign-appearing microcalcifications both breasts. Ultrasound examination retroareolar left breast demonstrates multiple simple appearing cysts in the retroareolar left breast. 1 cm presumed minimally complex cyst 11:00 retroareolar left breast. A 7 mm nodule mildly complex cyst in the 12:00 left breast 1 cm from the nipple. Normal left axilla. Recommend 6 month follow-up left breast ultrasound to document stability of benign-appearing findings. us Petra Hill MD IMG BI ORDERABLES Final Result * DEXA Bone Density Hip Pelvis and/or Spine without Vertebral Fracture Assessment VFA (01/16/2024 1:35 PM MDT) Anatomical Region Laterality Modality Hip, Pelvis, Spine Mammography 01/16/2024 1:48 PM MDT Impressions 01/16/2024 1:49 PM MDT Osteoporosis of the lumbar spine. Osteopenia and bilateral femurs. NOTE: NORMAL equals T-score above -1.0 S.D. OSTEOPENIA equals T-score between -1.0 and -2.5 S.D. OSTEOPOROSIS equals T-score below -2.5 S.D. The National Osteoporosis Foundation (N.O.F.) recommends additional laboratory testing and consideration of treatment for patients with T-scores at or below - 2.0. For patients with special risk factors, such as family history, smoking or heavy alcohol use, the N.O.F. recommends consideration of treatment at a T-score of - 1.5. WS: [id number] DICTATED BY: Shaji Chamberlain Date: 01/16/2024 13:48 MT TRANSCRIBED DATE: 01/16/2024 13:48 MT Narrative 01/16/2024 1:49 PM MDT EXAMINATION: Bone mineral density scan (DEXA) COMPARISON: None HISTORY: Postmenopausal screening PROCEDURE AND FINDINGS: DEXA bone densitometry of the lumbar spine and both hips was performed using a [employer] bone densitometer. LUMBAR SPINE: Summation imaging of the lumbar spine demonstrates a bone mineral density of 0.808 gm/cm2 with a T-score of -3.1. HIPS: The total bone mineral density of the left hip measures 0.765 gm/cm2. T-score -2.0. The total bone mineral density of the right hip measures 0.763 gm/cm2. T-score - 2.0. Procedure Note Shaji Chamberlain, DO - 01/16/2024 EXAMINATION: Bone mineral density scan (DEXA) COMPARISON: None HISTORY: Postmenopausal screening PROCEDURE AND FINDINGS: DEXA bone densitometry of the lumbar spine andboth hips was performed using a [employer] bone densitometer. LUMBAR SPINE: Summation imaging of the lumbar spine demonstrates a bone mineral densityof 0.808 gm/cm2 with a T-score of -3.1. HIPS: The total bone mineral density of the left hip measures 0.765 gm/cm2.T-score - 2.0. The total bone mineral density of the right hip measures 0.763 gm/cm2.T-score - 2.0. IMPRESSION: Osteoporosis of the lumbar spine. Osteopenia and bilateral femurs. NOTE: NORMAL equals T-score above -1.0 S.D. OSTEOPENIA equals T-score between -1.0 and -2.5 S.D. OSTEOPOROSIS equals T-score below -2.5 S.D. The National Osteoporosis Foundation (N.O.F.) recommends additionallaboratory testing and consideration of treatment for patients withT-scores at or below -2.0. For patients with special risk factors, such asfamily history, smoking or heavy alcohol use, the N.O.F. recommendsconsideration of treatment at a T-score of -1.5. WS: [id number] DICTATED BY: Shaji Chamberlain Date: 01/16/2024 13:48 MT TRANSCRIBED DATE: 01/16/2024 13:48 MT us Petra Hill MD IMG DXA ORDERABLES Final Resul t * Hepatitis C Ab (12/27/2021 7:10 AM MST) Hcv Ab <0.1 0.0 - 0.9 s/co ratio [facility] Comment: Negative: < 0.8 Indeterminate: 0.8 - 0.9 Positive: > 0.9 The CDC recommends that a positive HCV antibody result be followed up with a HCV Nucleic Acid Amplification test (291939). Blood Venous blood / Unknown 12/27/2021 7:10 AM MST 12/27/2021 Narrative [facility] - 12/28/2021 9:09 AM MST Performed at: [facility] [id number] Gear Repairer: Tae Sanchez MD, Phone: [phone] us Petra Hill MD LAB BLOOD ORDERABLES Final Res ult Performing Organization Address City/State/[place] Co de Phone Number [facility] [address] , [address] [address] from Last 3 Months or Most Recently Relevant to Health Maintenance [place] [place] [address] MEDICARE PPO HMO Care Teams Hematologist Oncologist Relationship Specialty Start Date End Date Petra Hill MD PCP - General Family Medicine 12/21/21
--- OUTSIDE RECORDS SUMMARY | 2025-06-27 02:28 | XMS_ITS | Encounter Summary ---
[facility] Address [address], [place] [address] Care Team Providers Care Slip Caster Name Role Phone Homa Mariano PA-C Primary Care Provid er Encounter Details Date Type Department Care Team (Late Contact Info) Description 05/19/2025 Results Follow-Up [address] [facility] 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 on file Not on file Not on fi le documented as of this encounter Plan of Treatment Upcoming Encounters Date Type Department Care Team (Late Contact Info) Description 07/10/2025 8:40 AM CDT Appointment Specialty Center [address] General Surgery [address] [facility] [address] [place], [place] [address] Kunal Arevalo MD [address] [place], [place] [phone] documented as of this encounter Visit Diagnoses Not on filedocumented in this encounter Care Teams Slip Caster Relationship Specialty Start Date End Date Homa Mariaon PA-C [address] [place], [place] [phone] PCP - General Physician Auto Dealer 06/25/25 documented as of this encounter
--- OUTSIDE RECORDS SUMMARY | 2025-06-27 02:28 | XMS_ITS | Encounter Summary ---
Author Organization [facility] Address [address], [place] [address] Care Team Providers Care Peanut Blancher Name Role Phone Unavailable Primary Care Provider Unavailabl e Reason for Visit * Reason Comments RESULTS, TEST Plan of Care Encounter Details Date Type Department Care Team (Late st Contact Info) Description 05/20/2025 Telephone [facility] [address] [facility] [address] [facility] 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 She denies post biopsy concerns. 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 The patient was educated that although this is not a cancer, it is considered a high risk lesion. It was discussed there is controversy as to how to follow ADH. Surgical excision versus short interval (6 month) follow up are both discussed in the literature. The size and characteristics seen by the radiologist at the time of biopsy guide the final recommendations for follow up. There is a possibilty the biopsy could be upgraded to a cancer if it were totally excised. I reviewed danny Garcia data on upgrade rate of ADH from 2021 and 2022. She was informed that women with ADH are at higher risk than the general population to develop breast cancer in either of her breasts in the future. We also discussed whether or not she proceeds with surgery, would recommend a future meeting w/ a Nurse Practitioner at the [facility]. The purpose of this meeting would be two-fold.The first to discuss possible supplemental breast cancer screening going forward and secondly a discussion of chemoprevention given this pathologic finding. Surgical consultation was recommended by radiology. I assisted her in scheduling with a surgical consult. All of her questions were answered and she was given the [facility] telephone # [phone] to call if she has any additional questions. documented in this encounter Plan of Treatment Upcoming Encounters Date Type Department Care Team (Late st Contact Info) Description 07/10/2025 8:40 AM CDT Appointment Specialty Center [address] General Surgery [address] [facility] [address] [place], [place] [address] Kunal Arevalo MD [address] [place], [place] [address] documented as of this encounter Visit Diagnoses Not on filedocumented in this encounter
--- OUTSIDE RECORDS SUMMARY | 2025-06-27 02:28 | XMS_ITS | Encounter Summary ---
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 Patient states, I already talked to someone else, so I'm good now. Pt denies any additional questions or concerns at this time. Closing chart. Yari Orantes RN Careline 12:38 AM 06/27/2025 Reason for Disposition Caller has already spoken with another triager and has no further questions. Protocols used: No Contact or Duplicate Contact [id number] Advised patient/caller to call back CareLine if there are further questions or concerns or to be seen if situation becomes emergent. The CareLine is available 21/05. Yari Orantes RN Careline 12:39 AM 06/27/2025 * Jessie Esquivel RN - 06/27/2025 12:33 AM CDT Situation/Background (brief explanation of current symptoms/situation): Pt states that her rash hasturned to hives and is spreading, denies difficulty breathing or swallowing , has taken Benadryl,Claritin, and showered, states that she is going to go to the ER NOW Reviewed pertinent medical history (as relates to the call): Yes Reviewed pertinent medications (as relates to the call): Yes Plan: ER NOW Advised patient/caller to call back CareLine if there are further questions or concerns. The CareLine is available 21/05. Pt verbalized understanding and agreed with the plan. Jessie Florence RN Rguxkrwu64:38 AM 06/27/2025 * Quin Gonzalez - 06/27/2025 12:27 AM CDT Patient is calling back, wants to talk to the nurse about her rash that is turing to hives and getting worse. Might be allergic to the antibiotic * Jessie Esquivel RN - 06/26/2025 8:50 PM CDT Situation/Background (brief explanation of current symptoms/situation): Pt has surgery yesterday, biopsy of left breast, has a rash from neck down to her trunk, is taking Claritin and benadryl, spoketo assistant professor surgical technology today and they advised her that it is probably due to the surgical prep, denies itching or difficulty breathing or swallowing, took 1 dose of liquid benadryl, rash is red, small dots, no rash on legs, arms or face, not using the Aquaphor, rash has spread, took a shower, denies any new medications, did get a dose of abx during surgery, took Claritin at lunch time, took benadryl at 1259 Reviewed pertinent medical history (as relates to the call): Yes Reviewed pertinent medications (as relates to the call): Yes Reason for Disposition Patient sounds very sick or weak to the triager Protocols used: Rash or Redness - [id number] Clinical Consult Consult type: Specialty field sales executive consult Clinician is: : MD - including fellow, resident Clinician name: : Paged at: [phone] Page returned at : [phone] Clinican recommendation comment:: Allergic rxn to something, if prep, it can take days to weeks to go away, good that not itchy, can use hydrocortisone 1% everywhere except the incision, leave 1/2 around the incision, Claritin and benadryl, tomorrow when you shower, really scrub except incision Telephone orders read back to clinician?: Yes Clinician recommendations/orders shared with patient?: Yes Patient (Select- Agrees/ Disagrees) with plan, no further questions: Agrees Advised patient/caller to call back if there are further questions/concerns or if symptoms worsen. Nurses are available 21/05.: Yes Jessie Florence RN Careline9:15 PM 06/26/2025 * Melvina Ramos - 06/26/2025 8:16 PM CDT Verified patient identity using three identifiers: Yes Caller's relationship to patient: Self, Do you have a provider/clinic where you are seen for this? [place] Specialty Symptoms Describe the reason for call/symptoms (include location and duration if applicable): post op rash that is spreading from neck down to her torso. Plan:The current callback time to speak with a nurse is 1.5hrs. If your symptoms change or worsen, or if you have not received a call back in the stated timeframe, please call us back documented in this encounter Plan of Treatment Upcoming Encounters Date Type Department Care Team (Late st Contact Info) Description 07/10/2025 8:40 AM CDT Appointment Specialty Center 39[address] General Surgery [address] [facility] [address] [place], [place] [address] Kunal Arevalo MD [address] [place], [place] [id number] documented as of this encounter Visit Diagnoses Not on filedocumented in this encounter Care Teams Soil Fertility Specialist Relationship Specialty Start Date End Date Homa Mariano PA-C [address] [place], [place] [address] PCP - General Physician [employer] Spanish Teacher 06/25/25 documented as of this encounter
--- OUTSIDE RECORDS SUMMARY | 2025-06-27 02:28 | XMS_ITS | Clinical Summary ---
Author Organization [facility] Address [address] [place] [address] Care Team Providers Care Senior Clinician Name Role Phone Petra Hill MD Primary Care Provider [phone] Allergies Active Allergy Reactions Criticality Noted Date [...] Assessment & Plan (11/01/2023 11:08 AM [facility]): Recommended CT scan, however, patient would rather [...] Assessment & Plan (12/26/2021 12:46 PM [facility]): Chronic; stable. Screen for colon cancer 12/26/2021 Assessment & Plan (12/26/2021 12:46 PM [facility]): Discussed options for colon cancer screening including [...] (adult), Adsorbed 03/14/2021(Deferred: Not av ailable from case assembler) Family History Medical History Relation Name Comments Dementia Father Diabetes Mother Relation Name Status Comments Father Mother Social History Tobacco Use Types Packs/Day Years [...] 01/07/2025 8:20 AM MDT Plan of Treatment Health Maintenance Due Date Last Done Comments CT Colonography 1955 Colonoscopy 1955 Colorectal Cancer Screening 1955 FIT-DNA 1955 FIT 1955 FOBT 1955 Sigmoidoscopy 1955 Pneumococcal Vaccine: 65+ Ye ars (1 of 1 - PCV) 2005 Shingles Vaccine (1 of 2) 2005 COVID-19 Vaccine (1 - season) 2024 Influenza Vaccine (#1) 2025 Mammogram 10/06/2025 10/06/2024, 11/24/2023 Medicare Annual Wellness Visit 01/07/2026 01/07/2025 , 12/20/2023 Td/Tdap 03/15/2031 03/15/2021 Hepatitis C Screening Completed 12/27/2021 DXA scan Completed 01/16/2024 Procedures Procedure Name Priority Date/Time Associated Diagnosis Comments MA DIAGNOSTIC MAMMOGRAM WITH TOMOSYNTHESIS BILATERAL Routine 10/06/2024 2:03 PM MST Breast pain, left DEXA BONE DEN HIP PEL SP WO VFA Routine 01/16/2024 1:35 PM MDT Asymptomatic menopausal state Family history of osteoporosis HEPATITIS C AB Routine 12/27/2021 7:10 AM [facility] Encounter for hepatitis C screening test for low risk patient from Last 3 Months or Most Recently Relevant to Health Maintenance Results * MA Diagnostic Mammogram With Tomosynthesis Bilateral (10/06/2024 2:03 PM [facility]) Anatomical Region Laterality Modality Breast Bilateral Mammography 10/06/2024 2:04 PM [facility] Impressions 10/07/2024 12:34 PM [facility] Wilner Huimicha 8 lifetime risk of breast cancer: 7.4% BIRADS 3 Probably Benign Short Interval Follow-Up in 6 Months Left [employer] Current Recommendation: Annual Mammogram after Age 40. This examination was reviewed with computer-aided detection (Pick1) (Version 1.7.3). GENERAL OBSERVATIONS ABOUT MAMMOGRAPHY: 1. 10-15% of breast cancers are not identified (false negative). 2. A negative report should not delay biopsy if a dominant or clinically suspicious mass is palpable. 3. Adenosis and/or dense breasts may obscure neoplasm. 4. False positive reports average 5%. WS: [id number] DICTATED BY: Armando Estrada Date: 10/06/2024 14:04 MT TRANSCRIBED DATE: 10/06/2024 14:06 MT Narrative 10/07/2024 12:34 PM [facility] EXAM: MA DIAGNOSTIC MAMMOGRAM WITH TOMOSYNTHESIS BILATERAL, [...] at a T-score of - 1.5. WS: [id number] DICTATED BY: Shaji Chamberlain Date: 01/16/2024 13:48 MT TRANSCRIBED DATE: 01/16/2024 13:48 MT Narrative 01/16/2024 1:49 PM MDT EXAMINATION: Bone mineral density scan (DEXA) COMPARISON: None HISTORY: Postmenopausal screening PROCEDURE AND FINDINGS: DEXA bone densitometry of the lumbar spine and both hips was performed using a M87 bone densitometer. LUMBAR SPINE: Summation imaging of the lumbar spine demonstrates a bone mineral density of 0.808 gm/cm2 with a T-score of -3.1. HIPS: The total bone mineral density of the left hip measures 0.765 gm/cm2. T-score -2.0. The total bone mineral density of the right hip measures 0.763 gm/cm2. T-score - 2.0. Procedure Note Shaji Chamberlain DO - 01/16/2024 EXAMINATION: Bone mineral density scan (DEXA) COMPARISON: None HISTORY: Postmenopausal screening PROCEDURE AND FINDINGS: DEXA bone densitometry of the lumbar spine andboth hips was performed using a M87 bone densitometer. LUMBAR SPINE: Summation imaging of [...] treatment at a T-score of -1.5. WS: [id number] DICTATED BY: Shaji Chamberlain Date: 01/16/2024 13:48 MT TRANSCRIBED DATE: 01/16/2024 13:48 MT Petra Hill MD IM DXA ORDERABLES Final Resul t * Hepatitis C Ab (12/27/2021 7:10 AM [facility]) [facility] Hcv Ab <0.1 0.0 - 0.9 s/co ratio [facility] Comment: Negative: < 0.8 Indeterminate: 0.8 - 0.9 Positive: > 0.9 The CDC recommends that a positive HCV antibody result be followed up with a HCV Nucleic Acid Amplification test ([id number]). Blood Venous blood / Unknown 12/27/2021 7:10 AM MST 12/27/2021 Narrative [facility] - 12/28/2021 9:09 AM MST Performed at: [address] [place] [address] [id number] [employer]station Operator Helper Generation: Tae Sanchez MD, Phone: [phone] us Petra Hill MD LAB BLOOD ORDERABLES Final Res ult [facility] [id number] , [address] [id number] from Last 3 Months or Most Recently Relevant to Health Maintenance Insurance [employer] MED[employer]ARE PPO HMO Care Teams Senior Clinician Relationship Specialty Start Date End Date Petra Hill MD PCP - General Family Medicine 12/21/21
--- OUTSIDE RECORDS SUMMARY | 2025-06-27 02:28 | XMS_ITS | Clinical Summary ---
Author Organization [facility] Address [address] [address] Care Team Providers Care Supervisory Historian Name Role Phone Homa Mariano PA-C Primary Care Provid er Source Comments You are receiving this document as you are listed as the primary care provider,follow-up provider, or the patient has been referred to you for consultation.This is in compliance with the Medicare andMedicaid EHR Incentive Program,which states Providers who transition their patient to another setting of careor provider of care or refers their patient to another provider of care shouldprovide summary care record for each transition of care or referral. TakeCare Allergies Active Allergy Reactions Criticality Noted Date Comments Amoxicillin Hives High 07/02/2003 Azithromycin Rash 01/29/2015 Blue Dye #2 (Indigo [place]) Hives High 01/10/2010 Caffeine Headache,Tachycardia Low 01/10/2010 migraine Cefaclor Anaphylaxis High 12/26/2021 Ciprofloxacin Unknown 06/05/2025 Clindamycin Anaphylaxis High 12/26/2021 Latex Rash 04/07/2011 Other Anaphylaxis High 01/05/2020 Air freshener, anaphylactic reaction, uses epi pen Paroxetine Other, see comments 07/02/2003 diarrhea Medications Multiple Vitamins-Scurry als (MULTIVITAMIN OR) Take 1 tablet by mouth daily (every 24 hours). 100 13 05/30/20 04 Active CALCIUM OR Take by mouth. 12/31/19 14 Active ALFALFA OIL OR Take by mouth. Reported on 01/10/2017 12/31/19 14 Active Cholecalcifero l 400 UNITS Take by mouth. 11/09/19 15 Active Probiotic Product (PROBIOTIC OR) Activ e diphenhydrAMIN E (BENADRYL) 12.5 MG/5ML elixir Take 5 mL (12.5 mg) by mouth. 04/03/20 19 Active EPINEPHrine (EPIPEN) 0.3 MG/0.3ML injection Inject 0.3 mL intramuscularly as needed. May repeat. 2 Each 07/01/20 20 Active loratadine (CLARITIN) 10 MG tablet Take 1 Tablet (10 mg) by mouth daily. Activ e traMADol (ULTRAM) 50 MG tablet Take 1 Tablet (50 mg) by mouth every 6 hours as needed. 10 Tablet 06/25/2025 10:03 AM CDT 06/25/20 25 Active Active Problems Problem Noted Date Diagnosed Date Atypical ductal hyperplasia of left breast 06/02 Decreased hearing, bilateral 01/07/2025 Age-related osteoporosis wit hout current pathological fracture 04/14/2024 Overview (04/04/2025): Taking AlgaeCal Plus; started in February: started weight-training Low vitamin D level 04/14/2024 Overview (04/04/2025): Started AlgaeCal Plus (03/2024) Now vit D wnl Fatty liver 11/14/2023 Mixed hyperlipidemia 12/28/2021 Overview (04/04/2025): Chronic. Stable. Recommended statin; pt declines Discussed [...] Total Cholesterol: 206 mg/dL Prediabetes 12/28/2021 Overview (04/04/2025): Chronic. Stable. The hemoglobin A1c is in the pre-diabetic range. Limiting simple carbohydrates and sugars in the diet will help prevent progression to diabetes. Moderate physical activity 150 minutes per week is also recommended. History of shingles 12/26/2021 Irritable bowel syndrome with constipation 12/26 Overview (04/04/2025): Encouraged increased fiber and fluid intake. Titrate miralax to comfort. Re- referred to colonoscopy. If LLQ recurs/worsens, will encouraged pt again toward CT scan of abdomen. Environmental allergies 12/26/2021 Overview (04/04/2025): Severe allergies to air fresheners and fabric softeners. Overweight 11/23/2014 Resolved Problems Problem Noted Date Diagnosed Date Resolved Date Abnormal mammogram of left breast 10/14/2024 06/25/2025 Overview (04/04/2025): BIRADS 3; repeat US due in March 2025 Varicella 11/17/2010 09/26/2017 Overview (06/20/2017): LW Onset: childhood ; Varicella Zoster Migraine 04/04/2003 06/05/2025 Overview (06/20/2017): Migraine Without Aura Lumbago 04/04/2003 09/26/2017 Overview (06/20/2017): Pain Low Back Encounters Date Type Department Care Team Description 06/26/2025 Nurse Triage Careline [address] [place], [place] [address] Unknown, Physician Post-Op Problem 06/26/2025 Notes/Orders [facility] [facility] [address] [place] [address] Kunal Arevalo MD Atypical ductal hyperplasia of left breast (Primary Dx) 06/26/2025 Telephone [facility] General Surgery [address] [place] [address] Britt Vines RN RASH 06/25/2025 7:55 AM CDT Anesthesia Event [facility] [address] [facility] [address] [place] [address] Anders Simmons MD [place] Cynthia 06/25/2025 7:30 AM CDT Ancillary Procedure [facility] and [address] [place] [address] Kunal Arevalo MD Abnormal mammogram of left breast; Atypical ductal hyperplasia of left breast 06/25/2025 7:30 AM CDT - 06/25/2025 8:55 AM CDT Surgery [facility] [address] [facility] [place] [address] Kunal Arevalo MD SEED LOCALIZED EXCISIONAL LEFT BREAST BIOPSY 06/25/2025 5:54 AM CDT - 06/25/2025 10:07 AM CDT Hospital Encounter [facility] [address] [place] [address]. [place] [address] Kunal Arevalo MD Abnormal mammogram of left breast; Atypical ductal hyperplasia of left breast Discharge Disposition: Home 06/24/2025 3:30 PM CDT Ancillary Procedure [facility] and [address] [place] [place] [address] Kunal Arvealo MD Abnormal mammogram of left breast; Atypical ductal hyperplasia of left breast 06/24/2025 3:00 PM CDT Ancillary Procedure [facility] and [address] [place] [place] [address] Kunal Arevalo MD Abnormal mammogram of left breast; Atypical ductal hyperplasia of left breast 06/15/2025 Telephone [facility] - General Surgery [address] [place], [place] [address] [address] Nancy Toledo RN QUESTIONS, GENERAL 06/05/2025 3:30 PM CDT [facility] [address] [facility] [place] [address] Homa Mariano PA-C Preop examination (Primary Dx); Abnormal mammogram of left breast; Atypical ductal hyperplasia of left breast 06/02/2025 2:40 PM CDT Office Visit [facility] [address] [facility] [place] [address] Kunal Arevalo MD Abnormal mammogram of left breast (Primary Dx); Atypical ductal hyperplasia of left breast 05/20/2025 E-Visit [address] [place] [address] Akilah Chamberlain, INTERNATIONAL MARKETING EXECUTIVE, HOSPITALIST MEDICAL DIRECTOR 05/20/[address] [place] [address] Akilah Chamberlain, INTERNATIONAL MARKETING EXECUTIVE, HOSPITALIST MEDICAL DIRECTOR RESULTS, TEST; Plan of Care 05/19/2025 2:00 PM CDT Ancillary Procedure [facility] and [address] [place] [address] Akilah Chamberlain, INTERNATIONAL MARKETING EXECUTIVE, HOSPITALIST MEDICAL DIRECTOR Abnormal finding on breast imaging 05/19/2025 1:00 PM CDT Ancillary Procedure [facility] and [address] [place] [address] Akilah Chamberlain, INTERNATIONAL MARKETING EXECUTIVE, HOSPITALIST MEDICAL DIRECTOR Abnormal finding on breast imaging (Primary Dx) 05/19/2025 Results Follow-Up [address] [place] [address] Akilah Chamberlain, INTERNATIONAL MARKETING EXECUTIVE, HOSPITALIST MEDICAL DIRECTOR 04/14/2025 Results Follow-Up [facility] [address] [place] [address] Akilah Chamberlain APRN, CNP 04/13/2025 1:30 PM CDT Ancillary Procedure [facility] and Specialty [address] [place] [address] Akilah Chamberlain APRN, MICHAEL Mass of right breast, unspecified quadrant 04/13/2025 1:00 PM CDT Ancillary Procedure [facility] and Specialty [address] [place] [address] Akilah Chamberlain APRN, MICHAEL Mass of right breast, unspecified quadrant 04/13/2025 11:00 AM CDT Office Visit [address] [place] [address] Akilah Chamberlain APRN, MICHAEL Breast pain (Primary Dx); Other abnormal and inconclusive findings on diagnostic imaging of breast 04/04/2025 9:00 AM CDT Office Visit [facility] [address] [place] [id number] Shar Ash, PEDRO, HOSPITALIST MEDICAL DIRECTOR Subareolar mass of right breast from Last 3 Months Immunizations Immunization Administration Dates Next Due DT Ped 10/27/1991 DTaP 10/27/1991 Flu Vac Preserv Free (3+yrs) 09/03/2008 HepA Adult (19+ yrs) 11/17/2010 Influenza [id number] 11/12/2009 Influenza, Unspecified Formulation 10/01/2003 Td 11/17/2010,03/27/2000 Td (7+ yrs) 03/27/2000 Family History Medical History Relation Name Comments Dementia Father Pacemaker Father Cataract Mother Diabetes Mother Diabetes Maternal Grandmother Diabetes Maternal Uncle Amblyopia/Strabismus Negative Family History Blindness Negative Family History Cancer Negative Family History Cancer, Breast Negative Family History Cancer, Colon Negative Family History Cancer, Ovary Negative Family History Glaucoma Negative Family History Hyperlipidemia Negative Family History Hypertension Negative Family History Macular Degeneration Negative Family History Retinal Detachment Negative Family History Stroke Negative Family History Thyroid Disorder Negative Family History Relation Name Status Comments Father Mother Alive Brother Alive half Maternal Grandfather Maternal Grandmother Maternal Uncle Paternal Grandfather Paternal Grandmother Sister 1 Alive half Sister 2 Alive half Social History Tobacco Use Types Packs/Day Years [...] 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 on file Not on file 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 on file 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 Not on file Not on file Not on fi le Last Filed Vital Signs Vital Sign Reading Time Taken Comments Blood Pressure 114/61 06/25/2025 9:30 AM CDT Pulse 71 06/25/2025 9:30 AM CDT Temperature 36.5 C (97.7 F) 06/25/2025 9:02 AM CDT Respiratory Rate 16 06/25/2025 9:15 AM CDT Oxygen Saturation 97% 06/25/2025 9:30 AM CDT Inhaled Oxygen Concentration - - Weight 77.6 kg (171 lb) 06/05/2025 3:11 PM CDT Height 168.9 cm (5' 6.5) 06/05/2025 3:11 PM CDT Body Mass Index 27.19 06/05/2025 3:11 PM CDT Plan of Treatment Upcoming Encounters Date Type Department Care Team (Late st Contact Info) Description 07/10/2025 8:40 AM CDT Appointment [facility] 39[address] General Surgery [address] [facility] [address] [place] [address] Kunal Arevalo MD [address] [place] [address] Health Maintenance Due Date Last Done Comments Hep C Screening (Preventive Services) 1955 Pneumococcal Vaccine 50+ Yrs (1 of 1 - PCV) 2005 Zoster/Shingles Vaccine (1 of 2) 2005 HepA Vaccine (2 of 2 - Risk 2-dose series) 05/17/2011 11/17/2010 Prediabetes: HGBA1C 09/26/2018 09/26/2017 Cholesterol 11/09/2019 11/09/2014 FIT Colon Cancer Screening 06/08/2021 06/08/2020 COVID-19 Vaccine (1 - season) 2024 Influenza Vaccine (#1) 2025 09/03/2008, 2002 Mammogram 10/06/2025 10/06/2024, 06/2024, 11/24/2023, Additional history exists Medicare Annual Wellness Visit 01/07/2026 01/07/2025 (Completed) RSV Vaccine (1 - 1-dose 75+ series) 2030 DTaP/Tdap/Td Vaccine (7 - Tdap) 03/15/2031 03/15/2021, 11/17/2010, 03/27/2000, Additional history exists Dexa Completed 01/16/2024, 01/16/2024 HepB Vaccine Aged Out No longer eligi ble based on patient's age to complete this topic Hib Vaccine Aged Out No longer eligi ble based on patient's age to complete this topic IPV (Polio) Vaccine Aged Out No longe r eligible based on patient's age to complete this topic MCV4 Vaccine Aged Out No longer eligi ble based on patient's age to complete this topic Meningococcal B Vaccine Aged Out No l onger eligible based on patient's age to complete this topic Procedures Procedure Name Priority Date/Time Associated Diagnosis Comments MM BREAST SPECIMEN Routine 06/25/2025 8: 41 AM CDT Abnormal mammogram of left breast Atypical ductal hyperplasia of left breast BREAST BIOPSY WITH SEED LOCALIZATION 06/25/2025 7:42 AM CDT Abnormal mammogram of left breast Atypical ductal hyperplasia of left breast MM POST MAMMOGRAM LT Routine 06/24/2025 3:31 PM CDT Abnormal mammogram of left breast Atypical ductal hyperplasia of left breast MM US BREAST SEED LOC LT Routine [...] seed placement at the 11:00 subareolarposition. PATHOLOGY: [facility] Accredited Facility: [facility] [id number] MM POST MAMMOGRAM LT Routine 05/19/2025 1:32 PM CDT Abnormal finding on breast imaging MM US BX BREAST LT Routine 05/19/2025 1: 19 PM CDT Abnormal finding on breast imaging SURGICAL PATHOLOGY, BREAST Routine 05/19/2025 12:42 PM CDT Abnormal finding on breast imaging MM US BREAST BILAT Routine 04/13/2025 1: 57 PM CDT Mass of right breast, unspecified quadrant MM MAMMOGRAM DIAG RT W 3D MIKE Routine 04/13/2025 1:06 PM CDT Mass of right breast, unspecified quadrant MAMMOGRAM SC 10/06/2024 FIT,OCCULT BLOOD, STOOL Routine 06/08/2020 5:12 PM CDT Screening for colon cancer HGB A1C Routine 09/26/2017 2:56 PM ELECTRONIC HEAT SEAL OPERATOR Dizziness LIPID PANEL & DIRECT LDL (IF NEEDED) Routine 11/09/2014 9:54 AM ELECTRONIC HEAT SEAL OPERATOR Hyperlipidemia from Last 3 Months or Most Recently Relevant to Health Maintenance Results * MM Breast Specimen (06/25/2025 8:41 AM CDT) Anatomical Region Laterality Modality Breast Digital Radiogra phy Narrative 06/25/2025 8:58 AM CDT Specimen Radiograph Radiograph of the surgical specimen demonstrates the clip and seed. Results were communicated to the operating room. Signed by: Torsten Schneider 06/25/2025 8:58 AM [facility] Accredited Facility: [facility] [id number] Procedure Note Torsten Schneider MD - 06/25/2025 Specimen Radiograph Radiograph of the surgical specimen demonstrates the clip and seed.Results were communicated to the operating room. Signed by: Torsten Schneider 06/25/2025 8:58 AM [facility] Accredited Facility: [facility] [address] Kunal Arevalo MD RAD JUNE Final Result * MM Post Mammogram Lt (06/24/2025 3:31 PM CDT) Only the most recent of2 resultswithin the time period is included. Anatomical Region Laterality Modality Breast Left Mammography [...] examination will be communicated to the patient. [facility] Accredited Facility: [place] [address] us Kunal Arevalo MD RAD JUNE Final Result * MM US Bx Breast Lt (05/19/2025 [...] Marsh 05/20/2025 11:26 AM FDA Accredited Facility: [facility] [address] Narrative 05/20/2025 11:26 AM CDT EXAM: ULTRASOUND [...] Marsh 05/20/2025 11:26 AM FDA Accredited Facility: [facility] [address] us Akilah Chamberlain APRN, HOSPITALIST MEDICAL DIRECTOR RAD JUNE Fin al Result * Surgical Path, Breast (05/19/2025 12:42 PM CDT) Case Report Surgical Pathology Case: [id number] Authorizing Provider: Akilah Chamberlain APRN, Collected: 05/19/2025 1242 HOSPITALIST MEDICAL DIRECTOR Ordering Location: [facility] Received: 05/19/2025 [address] [facility] [place] [address] Building Pathologist: Jessie Mao MD Specimen: Breast, left, 11:00 o'clock, Ultrasound 05/20/2025 10:25 AM CDT [facility] FINAL DIAGNOSIS A. Breast, left, 11:00 o'clock, Ultrasound, needle core biopsy: Atypical ductal hyperplasia (ADH) with associated calcifications Usual type ductal hyperplasia, columnar cell change, pseudoangiomatous stromal hyperplasia (PASH), and fibroadenomatoid change MDM has reviewed this case and concurs with the diagnosis. 05/20/2025 10:25 AM CDT [facility] at 1025 CDT Clinical Information non-palpable 05/20/2025 10:25 AM CDT [facility] Microscopic Description Microscopic examination is performed. 05/20/2025 10:25 AM CDT [facility] Gross Description A: The specimen is [...] 1 block. AW 05/20/2025 10:25 AM CDT [facility] Embedded Images 05/20/2025 10:25 AM CDT [facility] Tissue BREAST STRUCTURE / Unknown 05/19/2025 12:42 PM CDT 05/19/2025 2:37 PM CDT us Akilah Chamberlain APRN, HOSPITALIST MEDICAL DIRECTOR LAB PATHOLOGY Fin al Result [facility] [address] [facility] [address] * (ABNORMAL) MM US Breast Bilat (04/13/2025 1:57 PM CDT) Anatomical Region Laterality Modality Breast Bilateral Ultrasound 04/13/2025 1:38 PM CDT Narrative 04/13/2025 2:31 PM CDT HISTORY: Palpable right breast lump. Left breast [...] up were discussed with the patient. [facility] will attempt to schedule recommended follow up with the patient. FDA Accredited Facility: [facility] [address] Procedure Note Ariel Shea MD - 04/13/2025 HISTORY: Palpable right breast lump. Left breast ultrasound follow-up isrecommended to reassess possible complex cystic masses identified onprevious ultrasound. COMPARISON: Left breast ultrasound and bilateral diagnostic tomosynthesisfrom outside institution 10/06/2024, screening mammogram from outsideinstitution 11/24/2023 FINDINGS: DIAGNOSTIC MAMMOGRAM: Right breast tomosynthesis and C view. There arescattered areas of fibroglandular density. There is no suspiciousmammographic finding or significant change from prior. The breastparenchyma has a nodular pattern that is unchanged. TARGETED US: Ultrasound of the right breast 7:00 to 12:00 positionsencompassing the region of the palpable lump at the 9 o'clock position 3cm from the nipple does not confirm a suspicious finding. There aresimilar-appearing complex cystic masses in both breasts with nodular solidappearing components measuring up to 0.7 x 0.4 x 0.7 cm in the 11:00subareolar position of the left breast. This appearance is nonspecific,however these masses could represent multiple peripheral papillomas. Nolymphadenopathy in either axilla IMPRESSION/RECOMMENDATION: ACR BI-RADS CATEGORY 4: Suspicious. Recommend ultrasound-guided biopsy of the lesion in the 11:00 subareolarleft breast. Other similar-appearing masses in both breasts are likely ofthe same pathology. If this mass represents a biopsy-proven papilloma,breast MRI could be considered for further evaluation Given the lack of imaging findings to explain the patient's right breastlump, further management would need to be based on clinical grounds. Ifthe lump develops, further clinical follow-up with repeat imaging could berecommended at that time. The results of this examination and recommended follow up were discussedwith the patient. [facility] will attempt to schedulerecommended follow up with the patient. [facility] [address] [place] Akilah Chamberlain INTERNATIONAL MARKETING EXECUTIVE, HOSPITALIST MEDICAL DIRECTOR RAD JUNE Fin al Result * (ABNORMAL) MM Mammogram Diag Rt W 3D Mike (04/13/2025 1:06 PM CDT) Anatomical Region Laterality Modality Breast Right Mammography 04/13/2025 12:5 9 PM CDT Narrative 04/13/2025 2:31 PM CDT HISTORY: Palpable right breast lump. Left breast [...] up were discussed with the patient. [facility] will attempt to schedule recommended follow up with the patient. [facility] Accredited Facility: [facility] [id number] Procedure Note Ariel Shea MD - 04/13/2025 HISTORY: Palpable right breast lump. Left breast ultrasound follow-up isrecommended to reassess possible complex cystic masses identified onprevious ultrasound. COMPARISON: Left breast ultrasound and bilateral diagnostic tomosynthesisfrom outside institution 10/06[facility]2024[facility] FINDINGS: DIAGNOSTIC MAMMOGRAM: Right breast tomosynthesis and C view. There arescattered areas of fibroglandular density. There is no suspiciousmammographic finding or significant change from prior. The breastparenchyma has a nodular pattern that is unchanged. TARGETED US: Ultrasound of the right breast 7:00 to 12:00 positionsencompassing the region of the palpable lump at the 9 o'clock position 3cm from the nipple does not confirm a suspicious finding. There aresimilar-appearing complex cystic masses in both breasts with nodular solidappearing components measuring up to 0.7 x 0.4 x 0.7 cm in the 11:00subareolar position of the left breast. This appearance is nonspecific,however these masses could represent multiple peripheral papillomas. Nolymphadenopathy in either axilla IMPRESSION/RECOMMENDATION: ACR BI-RADS CATEGORY 4: Suspicious. Recommend ultrasound-guided biopsy of the lesion in the 11:00 subareolarleft breast. Other similar-appearing masses in both breasts are likely ofthe same pathology. If this mass represents a biopsy-proven papilloma,breast MRI could be considered for further evaluation Given the lack of imaging findings to explain the patient's right breastlump, further management would need to be based on clinical grounds. Ifthe lump develops, further clinical follow-up with repeat imaging could berecommended at that time. The results of this examination and recommended follow up were discussedwith the patient. [facility] will attempt to schedulerecommended follow up with the patient. [facility] [address] us Akilah Chamberlain INTERNATIONAL MARKETING EXECUTIVE, HOSPITALIST MEDICAL DIRECTOR RAD JUNE Fin al Result * MAMMOGRAM SC (10/06/2024) us Interface Provider MD DUMMY/OTHER/AR Final Resu lt * FIT Colon Rectal Cancer Screening (06/08/2020 5:12 PM CDT) FIT Specimen 1 Negative Negative 06/10/2020 12:05 PM CDT [facility] Stool 06/08/2020 5:12 PM CDT 06/08/2020 5:12 PM CDT us Sheyla Mcneil MD LAB_1 Final Result Performing Organization Address [facility]/ZIP Co de Phone Number [facility] [address] [phone] * (ABNORMAL) Hemoglobin A1C Glycosylated (09/26/2017 2:56 PM ELECTRONIC HEAT SEAL OPERATOR) HGB A1C 5.7(H) 4.0 - 5.6 % PN SOFT 09/26/2017 2:56 PM ELECTRONIC HEAT SEAL OPERATOR 09/26/2017 6:24 PM ELECTRONIC HEAT SEAL OPERATOR Narrative PN SOFT - 09/27/2017 8:17 AM ELECTRONIC HEAT SEAL OPERATOR Performed at [address] [address] CLIA number [id number] us Claudette Coto PA-C LAB_1 Final Result Performing Organization Address City/[facility]/ZIP Co de Phone Number PN SOFT [address] [place] [id number] * Lipid Panel and Direct LDL(If Needed) (11/09/2014 9:54 AM ELECTRONIC HEAT SEAL OPERATOR) Cholesterol 174 0 - 200 mg/dL HP CONVERSION Triglycerides 92 0 - 149 mg/dL HP CONVERSION HDL Cholesterol 41 >39 mg/dL HP CONVERSION Cholesterol/HDL Ratio Screen 4.2 HP CONVERSION LDL Calculated 115 19 - 130 mg/dL HP CONVERSION Hours Fasting 12.0 HP CONVERSION 11/09/2014 9:54 AM ELECTRONIC HEAT SEAL OPERATOR 11/09/2014 11:33 AM ELECTRONIC HEAT SEAL OPERATOR Narrative HP CONVERSION - 11/09/2014 1:40 PM ELECTRONIC HEAT SEAL OPERATOR Performed at [facility], [address] [place] [address] Sheyla Mcneil MD LAB_1 Final Result Performing Organization Address City/State/[facility] Co de Phone Number HP CONVERSION from Last 3 Months or Most Recently Relevant to Health Maintenance Insurance HP COMM FULLY INSURED DENTAL Advance Directives * Full Code (Latest Code Status on File) Date Activated Date Inactivated Comments 06/25/2025 9:00 AM 06/25/2025 12:12 PM Care Teams Supervisory Historian Relationship Specialty Start Date End Date Homa Mariano PA-C [address] [place] [address] PCP - General Physician Information Technology Security Analyst 06/25/25
--- OUTSIDE RECORDS SUMMARY | 2025-06-27 02:28 | XMS_ITS | Encounter Summary ---
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 Patient states that this started the day after surgery. Patient had a left breast excisional biopsy with Dr. Arevalo on 06/25/25. Patient denies pain, fever, chills, nausea and vomiting. Left message for patient with the plan for taking Claritin and Aquaphor for the skin irritation. Reassured patient that this is most likely a surgical scrub skin reaction. Patient to call back. documented in this encounter Plan of Treatment Upcoming Encounters Date Type Department Care Team (Late st Contact Info) Description 07/10/2025 8:40 AM CDT Appointment [facility] 3931 General Surgery [address] [facility] [address] [place], [place] [phone] Kunal Arevalo MD [address] [place], [place] [address] documented as of this encounter Visit Diagnoses Not on filedocumented in this encounter Care Teams Calender Operator Relationship Specialty Start Date End Date Homa Mariano PA-C [address] [place], [place] [phone] PCP - General Physician Monorail Car Operator 06/25/25 documented as of this encounter
--- OUTSIDE RECORDS SUMMARY | 2025-06-27 02:28 | XMS_ITS | Encounter Summary ---
Author Organization [facility] Address [address], [place] [address] Care Team Providers Care Application Support Lead Name Role Phone Clinician, Not Found MD Primary Care Provider Un available Encounter Details Date Type Department Care Team (Late Contact Info) Description 05/20/2025 E-Visit [facility] [address] [facility] [address] [facility]. [place], [place] [phone] Akilah Chamberlain, SPRING FORMER MACHINE, MEAT SLICER [address] [place] [address] Social History Tobacco Use Types [...] Appointment [facility]ty [facility] 3931 General Surgery [address] [facility] [address] [place] [address] Kunal Arevalo MD [address] [facility] [place] [id number] documented as of this encounter Visit Diagnoses Not on filedocumented in this encounter Care Teams Application Support Lead Relationship Specialty Start Date End Date Clinician, Not Found, [place] [address] PCP - General 06/05/25 5 documented as of this encounter
--- OUTSIDE RECORDS SUMMARY | 2025-06-27 02:28 | XMS_ITS | Encounter Summary ---
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 Not on file 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 on 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 Not on file Not on file Not on fi le documented as of this encounter Plan of Treatment Upcoming Encounters Date Type Department Care Team (Late st Contact Info) Description 07/10/2025 8:40 AM CDT Appointment [facility] 3931 General Surgery [address] [facility] [address] [place], [place] [address] Kunal Arevalo MD [address] [place], [place] [phone] documented as of this encounter Visit Diagnoses Diagnosis Atypical ductal hyperplasia of left breast- Primary documented in this encounter Care Teams Milk Wagon Driver Relationship Specialty Start Date End Date Homa Mariano PA-C [address] [place], [place] [address] PCP - General Physician Tennis Ball Coverer Hand 06/25/25 documented as of this encounter
--- OUTSIDE RECORDS SUMMARY | 2025-06-27 02:28 | XMS_ITS | Encounter Summary ---
Author Organization [facility] Address [address] [address] Care Team Providers Care Office Administration Name Role Phone Clinician, Not Found MD Primary Care Provider Un available Encounter Details Date Type Department Care Team (Late Contact Info) Description 04/14/2025 Results Follow-Up [facility] [address] [place] [address] [address] [facility]. 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 [address] [place] [address] Kunal Arevalo MD [address] [facility] [place] [id number] documented as of this encounter Visit Diagnoses Not on filedocumented in this encounter Care Teams Office Administration Relationship Specialty Start Date End Date Clinician, Not Found, [place] [address] PCP - General 06/05/25 5 documented as of this encounter
--- OUTSIDE RECORDS SUMMARY | 2025-06-27 02:28 | XMS_ITS | Encounter Summary ---
[facility] Address [address] [address] Care Team Providers Care Gre Instructor Name Role Phone Clinician, Not Found MD Primary Care Provider Un available Reason for Visit * Reason Comments QUESTIONS, GENERAL Encounter Details Date Type Department Care Team (Late st Contact Info) Description 06/15/2025 Telephone [facility] - General Surgery [address] [place], [place] [address] Nancy [place], RN QUESTIONS, GENERAL Social History Tobacco Use Types Packs/Day Years [...] as of this encounter Nursing Notes * Nancy [place] RN - 06/15/2025 3:22 PM CDT Patient called about arrival time for upcoming scheduled surgery.Parking Analyst left Patient a message and notified the surgery center will call one to three days prior to day of surgery to notify of arrivaltime. Kalyani provided direct contact phone number for the surgery center to Curtis if she wished to call. Notified they are aware of the high alerts, such as hypoglycemia and factor this in based onscheduling.Nancy [place], RN documented in this encounter Plan of Treatment Upcoming Encounters Date Type Department Care Team (Late st Contact Info) Description 07/10/2025 8:40 AM CDT Appointment [facility] 3931 General Surgery [address] [facility] [address] [place] [address] Kunal Arevalo MD [address] [place], [place] [phone] documented as of this encounter Visit Diagnoses Not on filedocumented in this encounter Care Teams Gre Instructor Relationship Specialty Start Date End Date Clinician, Not Found, [place] [address] PCP - General 06/05/25 5 documented as of this encounter
== END 2025-06-27 02:27 | disposition home or self-care (01) ==
LOC: ED 02:26
PROVIDERS: Emergency Provider Family Medicine
DX: L25.9 Unspecified contact dermatitis, unspecified cause (principal)
CPT/HCPCS: 99283